=== PATIENT | male | born 1950 | race Caucasian/White ===

== ENCOUNTER 2018-01-24 03:09 | Emergency (ER) | payer OTHER ==
[~2018-01-24] VITALS: Ht 177.8 cm; Wt 115.7 kg
[2018-01-24] MEDS ORDERED: METO50ER PO (03:32)
[2018-01-24] MEDS ORDERED: ASPI81CH PO (03:32)
[2018-01-24] MEDS ORDERED: PRAV20 PO (03:32)
[2018-01-24] MEDS ORDERED: GLIM2 PO (03:33)
[2018-01-24] MEDS ORDERED: FURO40 PO (03:33)
[2018-01-24] MEDS ORDERED: METF500C PO (03:33)
[2018-01-24] MEDS ORDERED: LISI5 PO ×2 (03:34→03:45)
[2018-01-24] MEDS ORDERED: NAPR500 PO (03:45)
[2018-01-24 03:52] LABS: BASOPHILS ABSOLUTE AUTO 0.04 K/mm3 (0.00-0.23); BASOPHILS PERCENT AUTO 1 % (0-2); EOSINOPHILS ABSOLUTE AUTO 0.19 K/mm3 (0.00-0.68); EOSINOPHILS PERCENT AUTO 3 % (0-6); Hematocrit 42.6 % (37.0-53.0); Hemoglobin 13.7 g/dL (13.5-17.5); IMMATURE GRAN ABSOLUTE AUTO 0.07 K/mm3 (0.00-0.10); IMMATURE GRAN PERCENT AUTO 1 % (0-1); LYMPHOCYTES ABSOLUTE AUTO 1.65 K/mm3 (0.84-5.20); LYMPHOCYTES PERCENT AUTO 22 % (21-46); MONOCYTES ABSOLUTE AUTO 0.74 K/mm3 (0.16-1.47); MONOCYTES PERCENT AUTO 10 % (4-13); Mean Corpuscular HGB Conc 32.2 g/dL (31.5-36.5); Mean Corpuscular Volume 87 fL (80-100); Mean Platelet Volume 10.1 fL (9.1-12.4); NEUTROPHILS ABSOLUTE AUTO 4.91 K/mm3 (1.96-9.15); NEUTROPHILS PERCENT AUTO 65 % (41-73); Platelet Count 263 K/mm3 (150-400); RDW Coefficient Variation 13.4 % (11.7-14.2); RDW Standard Deviation 42.5 fL (35.1-46.3); Red Blood Cell Count 4.89 M/mm3 (4.30-5.90)
[2018-01-24 04:07] LABS: Alanine Aminotransfer (ALT/SGP 28 U/L (12-78); Albumin, Blood 3.4 g/dL (3.4-5.0); Alk Phos 85 U/L (50-136); Anion Gap 9 mmol/L (6-16); Aspartate Aminotrans (AST/SGOT 18 U/L (12-37); Bilirubin, Total 0.5 mg/dL (0.1-1.0); Blood Urea Nitrogen 24 mg/dL (8-24); Bun/Creatinine Ratio 29.3 (12.0-20.0); CO2, Blood 26 mmol/L (21-32); Calcium, Blood 8.5 mg/dL (8.5-10.1); Chloride, Blood 103 mmol/L (98-108); Creatinine, Blood 0.82 mg/dL (0.60-1.20); Globulin, Blood 3.5 g/dL (2.2-4.0); Glomerular Filtration Rate >60 (60-); Glucose, Blood 342 mg/dL (70-99); Magnesium, Blood 1.8 mg/dL (1.6-2.4); Potassium, Blood 3.9 mmol/L (3.5-5.5); Sodium, Blood 138 mmol/L (136-145); Total Protein, Blood 6.9 g/dL (6.4-8.2); Troponin I <0.015 ng/mL (0.000-0.040)
[2018-01-24] MEDS ORDERED: Cipro500 MG PO (05:04)
[2018-01-24] MEDS ORDERED: Flagyl500 MG PO (05:04)
== END 2018-01-24 05:16 | disposition home or self-care (01) ==
LOC: ER 03:09
PROVIDERS: Emergency Medicine
DX: K57.31 Diverticulosis of large intestine without perforation or abscess with bleeding (principal); K57.33 Diverticulitis of large intestine without perforation or abscess with bleeding; Z88.5 Allergy status to narcotic agent; Z79.899 Other long term (current) drug therapy; Z79.82 Long term (current) use of aspirin; Z79.84 Long term (current) use of oral hypoglycemic drugs
CPT/HCPCS: 36415; 74176; 80053; 82272; 83690; 83735; 84484; 85025; 86850; 86900; 86901; 99284-25

== ENCOUNTER → 2018-12-09 | Outpatient (CLI) | payer OTHER ==
[~2018-12-09] MED LIST: AMLO5; ASPI81CH PO; BUPR150ERA; Cipro500 MG PO; FURO40 PO; Flagyl500 MG PO; GLIM2 PO; Indomethacin25 MG; LEVSOD100; LISI5 PO; METF500C PO; METO100ER PO; METO50ER PO; NAPR500 PO; NOVOLIN 70100 UNIT/1; PRAV20 PO; TAMS.4ER; ZESTRIL40 MG; Zoloft100 MG
== END | disposition home or self-care (01) ==
LOC: LAB SHORT 10:00 → LAB EV 10:00
DX: L72.3 Sebaceous cyst (principal)
CPT/HCPCS: 87070; 87077; 87147; 87186; 87205

== ENCOUNTER 2019-02-03 13:28 | Emergency (ER) | payer OTHER ==
[~2019-02-03] VITALS: Ht 177.8 cm; Wt 115.7 kg
[~2019-02-03 13:28] MED LIST changes: -TAMS.4ER
[2019-02-03] MEDS ORDERED: TAMS.4ER (14:14)
[2019-02-03 15:45] LABS: BASOPHILS ABSOLUTE AUTO 0.02 K/mm3 (0.00-0.23); BASOPHILS PERCENT AUTO 0 % (0-2); EOSINOPHILS ABSOLUTE AUTO 0.04 K/mm3 (0.00-0.68); EOSINOPHILS PERCENT AUTO 0 % (0-6); Hematocrit 45.7 % (37.0-53.0); Hemoglobin 14.4 g/dL (13.5-17.5); IMMATURE GRAN ABSOLUTE AUTO 0.04 K/mm3 (0.00-0.10); IMMATURE GRAN PERCENT AUTO 0 % (0-1); LYMPHOCYTES ABSOLUTE AUTO 0.64 K/mm3 (0.84-5.20); LYMPHOCYTES PERCENT AUTO 7 % (21-46); MONOCYTES ABSOLUTE AUTO 0.68 K/mm3 (0.16-1.47); MONOCYTES PERCENT AUTO 8 % (4-13); Mean Corpuscular HGB Conc 31.5 g/dL (31.5-36.5); Mean Corpuscular Volume 86 fL (80-100); NEUTROPHILS ABSOLUTE AUTO 7.48 K/mm3 (1.96-9.15); NEUTROPHILS PERCENT AUTO 84 % (41-73); Platelet Count 216 K/mm3 (150-400); RDW Coefficient Variation 14.4 % (11.7-14.2); RDW Standard Deviation 45.1 fL (35.1-46.3); Red Blood Cell Count 5.33 M/mm3 (4.30-5.90)
[2019-02-03 16:16] LABS: Troponin I <0.015 ng/mL (0.000-0.040)
[2019-02-03 16:18] LABS: Alanine Aminotransfer (ALT/SGP 26 U/L (12-78); Albumin, Blood 3.6 g/dL (3.4-5.0); Alk Phos 53 U/L (50-136); Anion Gap 3 mmol/L (6-16); Aspartate Aminotrans (AST/SGOT 15 U/L (12-37); Bilirubin, Total 0.9 mg/dL (0.1-1.0); Blood Urea Nitrogen 30 mg/dL (8-24); Bun/Creatinine Ratio 14.8 (12.0-20.0); CO2, Blood 30 mmol/L (21-32); Calcium, Blood 9.1 mg/dL (8.5-10.1); Chloride, Blood 100 mmol/L (98-108); Creatinine, Blood 2.03 mg/dL (0.60-1.20); Globulin, Blood 3.5 g/dL (2.2-4.0); Glomerular Filtration Rate 35 (60-); Glucose, Blood 241 mg/dL (70-99); Potassium, Blood 4.1 mmol/L (3.5-5.5); Sodium, Blood 133 mmol/L (136-145); Total Protein, Blood 7.1 g/dL (6.4-8.2)
== END 2019-02-03 19:15 | disposition short-term general hospital (02) ==
LOC: ER 13:28
PROVIDERS: Emergency Medicine
DX: N13.2 Hydronephrosis with renal and ureteral calculous obstruction (principal); N17.9 Acute kidney failure, unspecified; Z88.5 Allergy status to narcotic agent; Z79.899 Other long term (current) drug therapy; Z79.4 Long term (current) use of insulin
CPT/HCPCS: 36415; 74176; 80053; 84484; 85025; 96361; 96374; 99285-25; J2405; J7120

== ENCOUNTER → 2019-05-03 | Outpatient (CLI) | payer OTHER ==
[~2019-05-03] MED LIST changes: +ACET500 PO; -AMLO5; +AMLO5 PO; +BUPR150ER PO; -BUPR150ERA; +INSULANPEN SC; -LEVSOD100; +LEVSOD100 PO; +ONDA4 PO; +POTA10T PO; +TAMS.4ER; +Voltaren100 GM TOP; +ZESTRIL40 M1 PO; -ZESTRIL40 MG; -Zoloft100 MG; +Zoloft100 MG PO
== END | disposition home or self-care (01) ==
LOC: LAB SHORT 15:10 → LAB EV 15:10
DX: L08.9 Local infection of the skin and subcutaneous tissue, unspecified (principal)
CPT/HCPCS: 87070; 87205

== ENCOUNTER 2019-06-15 20:59 | Emergency (ER) | payer OTHER ==
[~2019-06-15] VITALS: Ht 177.8 cm; Wt 117.0 kg
[~2019-06-15 20:59] MED LIST changes: -ACET500 PO; -INSULANPEN SC; -ONDA4 PO; -POTA10T PO; -Voltaren100 GM TOP
[2019-06-15 22:02] LABS: BASOPHILS ABSOLUTE AUTO 0.06 K/mm3 (0.00-0.23); BASOPHILS PERCENT AUTO 0 % (0-2); EOSINOPHILS ABSOLUTE AUTO 0.03 K/mm3 (0.00-0.68); EOSINOPHILS PERCENT AUTO 0 % (0-6); Hematocrit 48.5 % (37.0-53.0); Hemoglobin 15.5 g/dL (13.5-17.5); IMMATURE GRAN ABSOLUTE AUTO 0.15 K/mm3 (0.00-0.10); IMMATURE GRAN PERCENT AUTO 1 % (0-1); LYMPHOCYTES ABSOLUTE AUTO 0.87 K/mm3 (0.84-5.20); LYMPHOCYTES PERCENT AUTO 6 % (21-46); MONOCYTES ABSOLUTE AUTO 1.07 K/mm3 (0.16-1.47); MONOCYTES PERCENT AUTO 7 % (4-13); Mean Corpuscular HGB 27.6 pg (26.0-34.0); Mean Corpuscular Volume 86 fL (80-100); Mean Platelet Volume 10.3 fL (9.1-12.4); NEUTROPHILS ABSOLUTE AUTO 13.54 K/mm3 (1.96-9.15); NEUTROPHILS PERCENT AUTO 86 % (41-73); Platelet Count 234 K/mm3 (150-400); RDW Coefficient Variation 14.1 % (11.7-14.2); RDW Standard Deviation 44.8 fL (35.1-46.3); Red Blood Cell Count 5.62 M/mm3 (4.30-5.90); White Blood Cell Count 15.72 K/mm3 (4.00-11.30)
[2019-06-15 22:25] LABS: Alanine Aminotransfer (ALT/SGP 34 U/L (12-78); Albumin, Blood 3.7 g/dL (3.4-5.0); Alk Phos 53 U/L (50-136); Anion Gap 9 mmol/L (6-16); Aspartate Aminotrans (AST/SGOT 13 U/L (12-37); Bilirubin, Total 1.3 mg/dL (0.1-1.0); Blood Urea Nitrogen 16 mg/dL (8-24); Bun/Creatinine Ratio 17.1 (12.0-20.0); CO2, Blood 25 mmol/L (21-32); Calcium, Blood 9.1 mg/dL (8.5-10.1); Chloride, Blood 102 mmol/L (98-108); Creatinine, Blood 0.94 mg/dL (0.60-1.20); Globulin, Blood 3.7 g/dL (2.2-4.0); Glomerular Filtration Rate >60 (60-); Glucose, Blood 214 mg/dL (70-99); Potassium, Blood 3.7 mmol/L (3.5-5.5); Sodium, Blood 136 mmol/L (136-145); Total Protein, Blood 7.4 g/dL (6.4-8.2); Troponin I <0.015 ng/mL (0.000-0.040)
[2019-06-15] MEDS ORDERED: POTA10T PO (22:34)
[2019-06-15] MEDS ORDERED: INSULANPEN SC (22:34)
[2019-06-15] MEDS ORDERED: ONDA4 PO (22:34)
[2019-06-15] MEDS ORDERED: ACET500 PO (22:34)
[2019-06-15] MEDS ORDERED: Voltaren100 GM TOP (22:35)
[2019-06-16 00:28] LABS: Adenovirus Not Detected (NOT DETECT); Bordetella pertussis Not Detected (NOT DETECT); Chlamydophila pneumoniae Not Detected (NOT DETECT); Coronavirus 229E Not Detected (NOT DETECT); Coronavirus HKU1 Not Detected (NOT DETECT); Coronavirus NL63 Not Detected (NOT DETECT); Coronavirus OC43 Not Detected (NOT DETECT); Human Metapneumovirus Not Detected (NOT DETECT); Human Rhinovirus/Enterovirus Not Detected (NOT DETECT); Influenza A Not Detected (NOT DETECT); Influenza A/2009-H1 Not Detected (NOT DETECT); Influenza A/H1 Not Detected (NOT DETECT); Influenza A/H3 Not Detected (NOT DETECT); Influenza B Not Detected (NOT DETECT); Mycoplasma pneumoniae Not Detected (NOT DETECT); Parainfluenza Virus 1 Not Detected (NOT DETECT); Parainfluenza Virus 2 Not Detected (NOT DETECT); Parainfluenza Virus 3 Not Detected (NOT DETECT); Parainfluenza Virus 4 Not Detected (NOT DETECT); Respiratory Syncytial Virus Not Detected (NOT DETECT)
== END 2019-06-16 01:11 | disposition home or self-care (01) ==
LOC: ER 20:59
PROVIDERS: Emergency Medicine; Physician Assistant
DX: J06.9 Acute upper respiratory infection, unspecified (principal); Z88.5 Allergy status to narcotic agent; Z79.899 Other long term (current) drug therapy; Z79.84 Long term (current) use of oral hypoglycemic drugs
CPT/HCPCS: 0099U; 36415; 71046; 80053; 84484; 85025; 93005; 93010; 94640; 99284-25

== ENCOUNTER 2021-03-28 11:07 | Day surgery (SDC) | payer OTHER ==
[~2021-03-28] VITALS: Ht 177.8 cm; Wt 115.0 kg
[~2021-03-28 11:07] MED LIST changes: +ACET500 PO; +INSULANPEN SC; +ONDA4 PO; +POTA10T PO; +Voltaren100 GM TOP
[2021-03-28] MEDS ORDERED: NOVOLIN 70100 UNIT/4 SC (11:53)
== END 2021-03-28 13:29 | disposition home or self-care (01) ==
LOC: ORSCSDS 11:07
PROVIDERS: Orthopaedic Surgery
PROC: 01N54ZZ Release Median Nerve, Percutaneous Endoscopic Approach (ICD-10-PCS; principal; 2021-03-28 12:30)
DX: G56.02 Carpal tunnel syndrome, left upper limb (principal); E11.9 Type 2 diabetes mellitus without complications; I10 Essential (primary) hypertension; E66.9 Obesity, unspecified; Z68.36 Body mass index [BMI] 36.0-36.9, adult; F41.8 Other specified anxiety disorders; E78.5 Hyperlipidemia, unspecified; Z79.4 Long term (current) use of insulin; Z79.899 Other long term (current) drug therapy
CPT/HCPCS: 82947; J2250; J2704; J3010

== ENCOUNTER 2022-05-02 16:13 | Inpatient (IN) | payer OTHER ==
[~2022-05-02] VITALS: Ht 177.8 cm; Wt 113.5 kg
[~2022-05-02 16:13] MED LIST changes: -BACTRIM DS TAB1 EAC6 PO; -METO25ER PO
[2022-05-02 17:29] LABS: Influenza A, PCR NEGATIVE (NEGATIVE); Influenza B, PCR NEGATIVE (NEGATIVE); Resp Syncytial Virus, PCR NEGATIVE (NEGATIVE); SARS-Cov-2 (COVID-19) PCR, MMC NEGATIVE (NEGATIVE)
[2022-05-02 18:05] LABS: Source, Urine Clean Catch
[2022-05-02 18:16] LABS: Appearance, Urine Clear (Clear); Blood, Urine 4+ (Neg); Color, Urine Amber (P-Yellow); Glucose Qualitative, Urine Neg (Neg); Ketones, Urine Neg (Neg); Leukocyte Esterase, Urine 2+ (Neg); Nitrite, Urine Neg (Neg); Protein, Urine 2+ (Neg); Specific Gravity, Urine 1.025 (1.003-1.022); Urobilinogen, Urine NORM (Normal)
[2022-05-02 18:22] LABS: Bilirubin, Urine 1+ (Neg)
[2022-05-02 18:23] LABS: Bacteria Mod /hpf; Squamous Epithelial Cells Rare /hpf (Few)
[2022-05-02 18:24] LABS: Amorphous Light (0-Heavy)
[2022-05-03 01:03] LABS: BASOPHILS ABSOLUTE AUTO 0.04 K/mm3 (0.00-0.23); BASOPHILS PERCENT AUTO 0 % (0-2); EOSINOPHILS ABSOLUTE AUTO 0.04 K/mm3 (0.00-0.68); EOSINOPHILS PERCENT AUTO 0 % (0-6); Hematocrit 42.3 % (37.0-53.0); Hemoglobin 13.3 g/dL (13.5-17.5); IMMATURE GRAN ABSOLUTE AUTO 0.18 K/mm3 (0.00-0.10); IMMATURE GRAN PERCENT AUTO 1 % (0-1); LYMPHOCYTES ABSOLUTE AUTO 0.58 K/mm3 (0.84-5.20); LYMPHOCYTES PERCENT AUTO 3 % (21-46); MONOCYTES ABSOLUTE AUTO 1.54 K/mm3 (0.16-1.47); MONOCYTES PERCENT AUTO 9 % (4-13); Mean Corpuscular HGB 27.5 pg (26.0-34.0); Mean Corpuscular HGB Conc 31.4 g/dL (31.5-36.5); Mean Corpuscular Volume 87 fL (80-100); Mean Platelet Volume 9.7 fL (9.1-12.4); NEUTROPHILS ABSOLUTE AUTO 15.27 K/mm3 (1.96-9.15); NEUTROPHILS PERCENT AUTO 87 % (41-73); Platelet Count 202 K/mm3 (150-400); RDW Coefficient Variation 15.1 % (11.7-14.2); RDW Standard Deviation 48.7 fL (35.1-46.3); Red Blood Cell Count 4.84 M/mm3 (4.30-5.90); White Blood Cell Count 17.65 K/mm3 (4.00-11.30)
[2022-05-03 01:22] LABS: Albumin, Blood 2.8 g/dL (3.4-5.0); Albumin/Globulin Ratio 0.7 (0.8-1.8); Bilirubin, Total 1.1 mg/dL (0.1-1.0); Calcium, Blood 8.4 mg/dL (8.5-10.1); Creatinine, Blood 2.29 mg/dL (0.60-1.20); Globulin, Blood 3.8 g/dL (2.2-4.0); Potassium, Blood 4.4 mmol/L (3.5-5.5); Total Protein, Blood 6.6 g/dL (6.4-8.2)
--- NOTE | 2022-05-03 07:20 | NUR ---
SHIFT SUMMARY PATIENT ALERT AND ORIENTED X3. MEDICATED PER EMAR FOR PAIN. DENIED SHORTNESS OF BREATH AND NAUSEA. PATIENT HAS BEEN INCREASING IN WEAKNESS SINCE BEING ADMITTED. CALL LIGHT WITHIN REACH REPORT GIVEN TO ONCOMING RN.
--- NOTE | 2022-05-04 05:05 | NUR ---
Patient resting at this time, no complaints of pain or discomfort.
[2022-05-04 05:44] LABS: BASOPHILS ABSOLUTE AUTO 0.03 K/mm3 (0.00-0.23); BASOPHILS PERCENT AUTO 0 % (0-2); EOSINOPHILS PERCENT AUTO 1 % (0-6); Hematocrit 38.5 % (37.0-53.0); Hemoglobin 12.1 g/dL (13.5-17.5); IMMATURE GRAN ABSOLUTE AUTO 0.28 K/mm3 (0.00-0.10); IMMATURE GRAN PERCENT AUTO 2 % (0-1); LYMPHOCYTES ABSOLUTE AUTO 0.48 K/mm3 (0.84-5.20); LYMPHOCYTES PERCENT AUTO 4 % (21-46); MONOCYTES ABSOLUTE AUTO 1.26 K/mm3 (0.16-1.47); MONOCYTES PERCENT AUTO 9 % (4-13); Mean Corpuscular HGB 27.6 pg (26.0-34.0); Mean Corpuscular HGB Conc 31.4 g/dL (31.5-36.5); Mean Corpuscular Volume 88 fL (80-100); Mean Platelet Volume 10.2 fL (9.1-12.4); NEUTROPHILS PERCENT AUTO 84 % (41-73); Platelet Count 187 K/mm3 (150-400); RDW Coefficient Variation 15.4 % (11.7-14.2); RDW Standard Deviation 49.7 fL (35.1-46.3); Red Blood Cell Count 4.39 M/mm3 (4.30-5.90); White Blood Cell Count 13.75 K/mm3 (4.00-11.30)
[2022-05-04 06:18] LABS: Albumin, Blood 2.4 g/dL (3.4-5.0); Albumin/Globulin Ratio 0.6 (0.8-1.8); Bilirubin, Total 0.8 mg/dL (0.1-1.0); Bun/Creatinine Ratio 16.2 (12.0-20.0); Calcium, Blood 8.7 mg/dL (8.5-10.1); Creatinine, Blood 1.97 mg/dL (0.60-1.20); Globulin, Blood 3.9 g/dL (2.2-4.0); Phosphorus, Blood 2.1 mg/dL (2.5-4.9); Total Protein, Blood 6.3 g/dL (6.4-8.2)
--- NOTE | 2022-05-04 17:22 | NUR ---
DAYSHIFT SUMMARY Patient admittted for uretral stones, urine output is mcneil/milky/sediment noted. Patient reported passing a stone, small redish stone found in urinary, per MD sent stone to lab for anaylsis. Dr. Cedeño ordered CT of bladder/kidneys. CT completed this afternoon, results pending. Patient c/o mild flank pain, resting comfortably in bed t/o day. CBGS high this shift, patient refused SSI this morning. Vitals stable, will continue to monitor.
[2022-05-05 00:15] LABS: Hematocrit 39.2 % (37.0-53.0); Hemoglobin 12.6 g/dL (13.5-17.5)
[2022-05-05 00:31] LABS: Albumin, Blood 2.4 g/dL (3.4-5.0); Anion Gap 7 mmol/L (6-16); Blood Urea Nitrogen 26 mg/dL (8-24); Bun/Creatinine Ratio 17.9 (12.0-20.0); CO2, Blood 25 mmol/L (21-32); Calcium, Blood 9.2 mg/dL (8.5-10.1); Chloride, Blood 106 mmol/L (98-108); Creatinine, Blood 1.45 mg/dL (0.60-1.20); Glomerular Filtration Rate 52 (60-); Glucose, Blood 190 mg/dL (70-99); Phosphorus, Blood 2.4 mg/dL (2.5-4.9); Potassium, Blood 3.9 mmol/L (3.5-5.5); Sodium, Blood 138 mmol/L (136-145); Vancomycin, Trough 7.6 ug/mL (5.0-10.0)
--- NOTE | 2022-05-05 03:31 | NUR ---
Patient resting in room, cooperative with care.
[2022-05-05] MEDS ORDERED: METO25ER PO (12:32)
[2022-05-05] MEDS ORDERED: BACTRIM DS TAB1 EAC6 PO (12:39)
--- NOTE | 2022-05-05 16:58 | NUR ---
MD assessed patient at bedside, CT showed pt passed stone. Pt denies flank pain/discomfort. Voiding fine, no dysuria, urine is WNL. Plan is to discharge home with PO ABX. RT completed home ox2 eval, pt needs oxygen for home. [facility] After 1800 Vancomycin patient will DC home.
--- NOTE | 2022-05-05 18:01 | NUR ---
MD assessed patient at bedside, CT showed pt passed stone. Pt denies flank pain/discomfort. Voiding fine, no dysuria, urine is WNL. Plan is to discharge home with PO ABX. RT completed home ox2 eval, pt needs oxygen for home. [facility] After 1800 Vancomycin patient will DC home.
== END 2022-05-05 19:17 | disposition home or self-care (01) | DRG 872 ==
LOC: ER 16:13 → MEDS 16:14
PROVIDERS: Hospitalist; Internal Medicine Nephrology; Physician Assistant; ADMIT Internal Medicine
DX: A41.01 Sepsis due to Methicillin susceptible Staphylococcus aureus (principal); N13.6 Pyonephrosis; E87.20 Acidosis, unspecified; N17.9 Acute kidney failure, unspecified; B95.61 Methicillin susceptible Staphylococcus aureus infection as the cause of diseases classified elsewhere; E11.22 Type 2 diabetes mellitus with diabetic chronic kidney disease; Z88.5 Allergy status to narcotic agent; I12.9 Hypertensive chronic kidney disease with stage 1 through stage 4 chronic kidney disease, or unspecified chronic kidney disease; E78.5 Hyperlipidemia, unspecified; E03.9 Hypothyroidism, unspecified; N18.9 Chronic kidney disease, unspecified; Z79.899 Other long term (current) drug therapy; Z79.4 Long term (current) use of insulin; Z98.890 Other specified postprocedural states; N40.0 Benign prostatic hyperplasia without lower urinary tract symptoms; E88.09 Other disorders of plasma-protein metabolism, not elsewhere classified; E83.39 Other disorders of phosphorus metabolism; D64.9 Anemia, unspecified; Z20.822 Contact with and (suspected) exposure to COVID-19; Z28.21 Immunization not carried out because of patient refusal
CPT/HCPCS: 0241U; 36415; 74176; 74177; 80053; 80069; 80202; 81001; 82947; 83605; 83690; 83735; 84100; 85014; 85018; 85025; 87040; 87077; 87086; 87147; 87186; 94761; 96361; 96375; 96376; A9270; G0378; J0696; J1790; J1815; J2405; J2543; J3010; J3370; J7030; J7050; J7060; Q9967

== ENCOUNTER → 2022-05-02 | Outpatient (CLI) | payer OTHER ==
[~2022-05-02] MED LIST changes: +BACTRIM DS TAB1 EAC6 PO; -BUPR150ER PO; +BUPROPION XL150 M1 PO; +METO100 PO; -METO100ER PO; +METO25ER PO; +NOVOLIN 70100 UNIT/4 SC; +SERT100 PO; +TAMS.4ER PO; -Zoloft100 MG PO
[2022-05-02 15:32] LABS: BASOPHILS ABSOLUTE AUTO 0.06 K/mm3 (0.00-0.23); BASOPHILS PERCENT AUTO 0 % (0-2); EOSINOPHILS ABSOLUTE AUTO 0.07 K/mm3 (0.00-0.68); EOSINOPHILS PERCENT AUTO 0 % (0-6); Hematocrit 48.8 % (37.0-53.0); Hemoglobin 15.3 g/dL (13.5-17.5); IMMATURE GRAN ABSOLUTE AUTO 0.21 K/mm3 (0.00-0.10); IMMATURE GRAN PERCENT AUTO 1 % (0-1); LYMPHOCYTES ABSOLUTE AUTO 0.63 K/mm3 (0.84-5.20); LYMPHOCYTES PERCENT AUTO 3 % (21-46); MONOCYTES ABSOLUTE AUTO 1.64 K/mm3 (0.16-1.47); MONOCYTES PERCENT AUTO 8 % (4-13); Mean Corpuscular HGB 27.5 pg (26.0-34.0); Mean Corpuscular HGB Conc 31.4 g/dL (31.5-36.5); Mean Corpuscular Volume 88 fL (80-100); Mean Platelet Volume 9.6 fL (9.1-12.4); NEUTROPHILS ABSOLUTE AUTO 18.05 K/mm3 (1.96-9.15); NEUTROPHILS PERCENT AUTO 88 % (41-73); Platelet Count 258 K/mm3 (150-400); RDW Coefficient Variation 15.4 % (11.7-14.2); RDW Standard Deviation 49.1 fL (35.1-46.3); Red Blood Cell Count 5.57 M/mm3 (4.30-5.90); White Blood Cell Count 20.66 K/mm3 (4.00-11.30)
[2022-05-02 15:39] LABS: Bun/Creatinine Ratio 11.9 (12.0-20.0); Calcium, Blood 9.3 mg/dL (8.5-10.1); Creatinine, Blood 2.19 mg/dL (0.60-1.20); Potassium, Blood 4.5 mmol/L (3.5-5.5)
== END | disposition home or self-care (01) ==
LOC: LAB SHORT 15:27 → LAB 15:27
PROVIDERS: Physician Assistant Surgical
DX: R10.32 Left lower quadrant pain (principal)
CPT/HCPCS: 80048; 85025

== ENCOUNTER → 2022-05-10 | Outpatient (CLI) | payer OTHER ==
[~2022-05-10] MED LIST changes: +BACTRIM DS TAB1 EAC6 PO; +METO25ER PO
[2022-05-10 12:33] LABS: BASOPHILS ABSOLUTE AUTO 0.05 K/mm3 (0.00-0.23); BASOPHILS PERCENT AUTO 1 % (0-2); EOSINOPHILS ABSOLUTE AUTO 0.18 K/mm3 (0.00-0.68); EOSINOPHILS PERCENT AUTO 2 % (0-6); Hematocrit 47.1 % (37.0-53.0); Hemoglobin 14.5 g/dL (13.5-17.5); IMMATURE GRAN ABSOLUTE AUTO 0.24 K/mm3 (0.00-0.10); IMMATURE GRAN PERCENT AUTO 3 % (0-1); LYMPHOCYTES ABSOLUTE AUTO 1.07 K/mm3 (0.84-5.20); LYMPHOCYTES PERCENT AUTO 12 % (21-46); MONOCYTES ABSOLUTE AUTO 0.66 K/mm3 (0.16-1.47); MONOCYTES PERCENT AUTO 7 % (4-13); Mean Corpuscular HGB 27.5 pg (26.0-34.0); Mean Corpuscular HGB Conc 30.8 g/dL (31.5-36.5); Mean Corpuscular Volume 89 fL (80-100); Mean Platelet Volume 9.5 fL (9.1-12.4); NEUTROPHILS ABSOLUTE AUTO 6.86 K/mm3 (1.96-9.15); NEUTROPHILS PERCENT AUTO 76 % (41-73); Platelet Count 347 K/mm3 (150-400); RDW Coefficient Variation 14.8 % (11.7-14.2); RDW Standard Deviation 48.5 fL (35.1-46.3); Red Blood Cell Count 5.27 M/mm3 (4.30-5.90); White Blood Cell Count 9.06 K/mm3 (4.00-11.30)
[2022-05-10 13:13] LABS: Albumin, Blood 3.1 g/dL (3.4-5.0); Albumin/Globulin Ratio 0.8 (0.8-1.8); Bilirubin, Total 0.6 mg/dL (0.1-1.0); Bun/Creatinine Ratio 13.3 (12.0-20.0); Creatinine, Blood 1.35 mg/dL (0.60-1.20); Total Protein, Blood 7.1 g/dL (6.4-8.2)
== END | disposition home or self-care (01) ==
LOC: LAB SHORT 12:22 → LAB 12:22
PROVIDERS: Physician Assistant
DX: N13.2 Hydronephrosis with renal and ureteral calculous obstruction (principal)
CPT/HCPCS: 80053; 85025

== ENCOUNTER 2023-03-06 12:14 | Observation (INO) | payer OTHER ==
[~2023-03-06] VITALS: Ht 177.8 cm; Wt 120.7 kg
[~2023-03-06 12:14] MED LIST changes: +ACET325 PO; -ACET500 PO
[2023-03-06 12:58] LABS: BASOPHILS ABSOLUTE AUTO 0.05 K/mm3 (0.00-0.23); BASOPHILS PERCENT AUTO 1 % (0-2); EOSINOPHILS ABSOLUTE AUTO 0.28 K/mm3 (0.00-0.68); EOSINOPHILS PERCENT AUTO 3 % (0-6); Hematocrit 47.6 % (37.0-53.0); Hemoglobin 14.8 g/dL (13.5-17.5); IMMATURE GRAN ABSOLUTE AUTO 0.04 K/mm3 (0.00-0.10); IMMATURE GRAN PERCENT AUTO 1 % (0-1); LYMPHOCYTES ABSOLUTE AUTO 1.19 K/mm3 (0.84-5.20); LYMPHOCYTES PERCENT AUTO 14 % (21-46); MONOCYTES ABSOLUTE AUTO 0.65 K/mm3 (0.16-1.47); MONOCYTES PERCENT AUTO 8 % (4-13); Mean Corpuscular HGB 27.4 pg (26.0-34.0); Mean Corpuscular HGB Conc 31.1 g/dL (31.5-36.5); Mean Corpuscular Volume 88 fL (80-100); Mean Platelet Volume 10.4 fL (9.1-12.4); NEUTROPHILS PERCENT AUTO 75 % (41-73); Platelet Count 234 K/mm3 (150-400); RDW Coefficient Variation 15.2 % (11.7-14.2); RDW Standard Deviation 49.1 fL (35.1-46.3); Red Blood Cell Count 5.41 M/mm3 (4.30-5.90); White Blood Cell Count 8.71 K/mm3 (4.00-11.30)
[2023-03-06 13:24] LABS: Albumin, Blood 3.6 g/dL (3.4-5.0); Albumin/Globulin Ratio 1.1 (0.8-1.8); Bilirubin, Total 0.8 mg/dL (0.1-1.0); Bun/Creatinine Ratio 22.8 (12.0-20.0); Calcium, Blood 8.7 mg/dL (8.5-10.1); Creatinine, Blood 1.01 mg/dL (0.60-1.20); Globulin, Blood 3.3 g/dL (2.2-4.0); Potassium, Blood 4.6 mmol/L (3.5-5.5); Total Protein, Blood 6.9 g/dL (6.4-8.2)
[2023-03-06 15:08] VITALS: BP 170/77
[2023-03-06] MEDS ORDERED: LISI20 PO (15:34)
[2023-03-06] MEDS ORDERED: LATA.005SO BOTHEYES (15:36)
[2023-03-06] MEDS ORDERED: TIMDOROPSO BOTHEYES (15:37)
[2023-03-06] MEDS ORDERED: POTCIT10 PO (15:39)
[2023-03-06] MEDS ORDERED: METF500C PO (15:40)
[2023-03-06 17:19] VITALS: BP 174/101
[2023-03-06 18:06] VITALS: BP 155/90
--- NOTE | 2023-03-06 18:55 | NUR ---
SHIFT SUMMARY PT A&OX4, VSS/2LNC BASELINE, VOIDING WELL, NO BM SINCE ARRIVAL TO UNIT, AMB SBA TO BRP, REPOSITIONS SELF, PROTONIX DRIP INFUSING, DR LINDSAY CONSULT: WILL SEE PATIENT TONIGHT. WILL REPORT TO ONCOMING NOC RN.
[2023-03-06 19:21] VITALS: BP 180/88
[2023-03-06 20:02] VITALS: BP 167/91
[2023-03-06 20:50] VITALS: BP 160/85
[2023-03-07 03:56] VITALS: BP 152/83
[2023-03-07 04:50] LABS: BASOPHILS ABSOLUTE AUTO 0.04 K/mm3 (0.00-0.23); BASOPHILS PERCENT AUTO 0 % (0-2); EOSINOPHILS ABSOLUTE AUTO 0.38 K/mm3 (0.00-0.68); EOSINOPHILS PERCENT AUTO 4 % (0-6); IMMATURE GRAN ABSOLUTE AUTO 0.04 K/mm3 (0.00-0.10); IMMATURE GRAN PERCENT AUTO 0 % (0-1); LYMPHOCYTES PERCENT AUTO 14 % (21-46); MONOCYTES ABSOLUTE AUTO 0.91 K/mm3 (0.16-1.47); MONOCYTES PERCENT AUTO 9 % (4-13); Mean Corpuscular HGB 27.4 pg (26.0-34.0); Mean Corpuscular HGB Conc 30.6 g/dL (31.5-36.5); Mean Corpuscular Volume 89 fL (80-100); Mean Platelet Volume 10.6 fL (9.1-12.4); NEUTROPHILS ABSOLUTE AUTO 7.18 K/mm3 (1.96-9.15); NEUTROPHILS PERCENT AUTO 72 % (41-73); Platelet Count 239 K/mm3 (150-400); RDW Coefficient Variation 15.4 % (11.7-14.2); RDW Standard Deviation 50.8 fL (35.1-46.3); Red Blood Cell Count 5.48 M/mm3 (4.30-5.90); White Blood Cell Count 9.95 K/mm3 (4.00-11.30)
[2023-03-07 05:06] LABS: Prothrombin Time Results 10.5 Sec (9.7-11.5)
[2023-03-07 05:15] LABS: Magnesium, Blood 2.2 mg/dL (1.6-2.4)
[2023-03-07 05:16] LABS: Albumin, Blood 3.6 g/dL (3.4-5.0); Anion Gap 4 mmol/L (6-16); Blood Urea Nitrogen 20 mg/dL (8-24); Bun/Creatinine Ratio 21.3 (12.0-20.0); CO2, Blood 29 mmol/L (21-32); Calcium, Blood 8.9 mg/dL (8.5-10.1); Chloride, Blood 108 mmol/L (98-108); Creatinine, Blood 0.94 mg/dL (0.60-1.20); Glomerular Filtration Rate 87 (60-); Glucose, Blood 102 mg/dL (70-99); Phosphorus, Blood 3.1 mg/dL (2.5-4.9); Potassium, Blood 3.9 mmol/L (3.5-5.5); Sodium, Blood 141 mmol/L (136-145)
--- NOTE | 2023-03-07 05:16 | NUR ---
SHIFT SUMMARY NOC. PT A/OX4 THIS SHIFT. PT MEDICATED FOR HTN X1. PT INDEPENDENT IN THE ROOM, VOIDING APPROPRIATLY AND ON WATER ONLY RESTRICTION PER DR. LINDSAY. VERBAL ORDERS RECEIVED FOR ZOFRAN IV INCASE PT BECOMES NAUSEATED WHILE NPO. PT IS TO BE NPO AT NOON FOR PROCEDURE. PT ON O2 VIA NASAL CANULA, SATS REMAINING ABOVE 92%. PT PROTONIX DRIP IS INFUSING. PT DENIES ABDOMINAL DISCOMFORT. PT RESTED WITH EYES CLOSED AND CALL LIGHT IN REACH.
[2023-03-07 09:32] VITALS: BP 174/96
[2023-03-07 10:13] VITALS: BP 155/73
--- NOTE | 2023-03-07 10:18 | NUR ---
03/07/23 1018 Mony Bales SEE ANESTHESIA RECORD FROM DR. ESCALONA
[2023-03-07 11:01] VITALS: BP 144/82
--- NOTE | 2023-03-07 11:10 | NUR ---
S/P EGD, PT IS AWAKE, A&OX4, DENIES ANY PAIN, NAUSEA OR ANY DISCOMFORT, DR. DOWNING NOTIFIED PT IS BACK FROM PROCEDURE, CONT. TO MONITOR VS AND ANY CHANGES.
[2023-03-07 11:30] VITALS: BP 129/71
[2023-03-07 11:59] VITALS: BP 152/74
[2023-03-07] MEDS ORDERED: ONDA4 PO (11:59)
[2023-03-07] MEDS ORDERED: PANT40 PO (12:00)
--- NOTE | 2023-03-07 12:58 | NUR ---
PT REPORTS BREATHING "BETTER" SATS 97% ON 2L, RESPIRATIONS APPEAR LESS LABORED, PT WAS ABLE TO EAT AND REST, CONT. TO MONITOR FOR ANY CHANGES.
--- NOTE | 2023-03-07 15:01 | NUR ---
PT TOLERATED REGULAR DIET WELL, DENIES ANY PAIN OR ANY DISCOMFORT, PT VOIDED WITHOUT DIFFICULTY, PT DC'D HOME, DC INSTRUCTIONS GIVEN, VERBALIZED UNDERSTANDING, PT DC'D HOME W/ "FRIEND," ALL BELONGINGS GIVEN TO PT.
== END 2023-03-07 15:05 | disposition home or self-care (01) ==
LOC: ER 12:14 → SURS 12:15 → ER 12:15 → SURS 12:15
PROVIDERS: Physician Assistant; ADMIT Family Medicine
PROC: 0DB58ZX Excision of Esophagus, Via Natural or Artificial Opening Endoscopic, Diagnostic (ICD-10-PCS; principal; 2023-03-06)
PROC: 0DB68ZX Excision of Stomach, Via Natural or Artificial Opening Endoscopic, Diagnostic (ICD-10-PCS; principal; 2023-03-06)
DX: K31.89 Other diseases of stomach and duodenum (principal); E78.5 Hyperlipidemia, unspecified; E03.9 Hypothyroidism, unspecified; K21.9 Gastro-esophageal reflux disease without esophagitis; G47.33 Obstructive sleep apnea (adult) (pediatric); E11.22 Type 2 diabetes mellitus with diabetic chronic kidney disease; I12.9 Hypertensive chronic kidney disease with stage 1 through stage 4 chronic kidney disease, or unspecified chronic kidney disease; N18.9 Chronic kidney disease, unspecified; Z79.4 Long term (current) use of insulin; Z88.5 Allergy status to narcotic agent
CPT/HCPCS: 36415; 80053; 80069; 82947; 83735; 85025; 85610; 88305; 88312; 88342; 93005; 93010; 96374; 96375; 99285-25; A9270; C9113; J0360; J2405; J2704; J7120

== ENCOUNTER 2023-04-08 06:29 | Observation (INO) | payer OTHER ==
[~2023-04-08] VITALS: Ht 177.8 cm; Wt 119.4 kg
[~2023-04-08 06:29] MED LIST changes: +LATA.005SO BOTHEYES; +LISI20 PO; +PANT40 PO; +POTCIT10 PO; +TIMDOROPSO BOTHEYES
[2023-04-08 07:14] LABS: BASOPHILS ABSOLUTE AUTO 0.06 K/mm3 (0.00-0.23); BASOPHILS PERCENT AUTO 1 % (0-2); EOSINOPHILS ABSOLUTE AUTO 0.24 K/mm3 (0.00-0.68); EOSINOPHILS PERCENT AUTO 2 % (0-6); Hematocrit 45.6 % (37.0-53.0); Hemoglobin 14.2 g/dL (13.5-17.5); IMMATURE GRAN ABSOLUTE AUTO 0.05 K/mm3 (0.00-0.10); IMMATURE GRAN PERCENT AUTO 1 % (0-1); LYMPHOCYTES ABSOLUTE AUTO 1.31 K/mm3 (0.84-5.20); LYMPHOCYTES PERCENT AUTO 12 % (21-46); MONOCYTES ABSOLUTE AUTO 0.86 K/mm3 (0.16-1.47); MONOCYTES PERCENT AUTO 8 % (4-13); Mean Corpuscular HGB 27.2 pg (26.0-34.0); Mean Corpuscular HGB Conc 31.1 g/dL (31.5-36.5); Mean Corpuscular Volume 87 fL (80-100); Mean Platelet Volume 10.8 fL (9.1-12.4); NEUTROPHILS ABSOLUTE AUTO 8.11 K/mm3 (1.96-9.15); NEUTROPHILS PERCENT AUTO 76 % (41-73); Platelet Count 226 K/mm3 (150-400); RDW Standard Deviation 48.3 fL (35.1-46.3); Red Blood Cell Count 5.22 M/mm3 (4.30-5.90); White Blood Cell Count 10.63 K/mm3 (4.00-11.30)
[2023-04-08 07:39] LABS: Albumin, Blood 3.5 g/dL (3.4-5.0); Bilirubin, Total 0.6 mg/dL (0.1-1.0); Bun/Creatinine Ratio 27.7 (12.0-20.0); Calcium, Blood 8.8 mg/dL (8.5-10.1); Creatinine, Blood 1.01 mg/dL (0.60-1.20); Globulin, Blood 3.5 g/dL (2.2-4.0); Potassium, Blood 4.2 mmol/L (3.5-5.5)
[2023-04-08] MEDS ORDERED: OMEP20ER PO (08:37)
[2023-04-08 10:01] LABS: Hematocrit 43.4 % (37.0-53.0); Hemoglobin 13.3 g/dL (13.5-17.5)
[2023-04-08 13:13] VITALS: BP 156/96
[2023-04-08] MEDS ORDERED: ACET500 (16:17)
[2023-04-08 16:29] VITALS: BP 166/91
[2023-04-08 18:10] LABS: Hematocrit 42.4 % (37.0-53.0); Hemoglobin 13.4 g/dL (13.5-17.5)
--- NOTE | 2023-04-08 18:40 | NUR ---
SHIFT SUMMARY: PT IS A 73 YEAR OLD MALE HERE FOR A GI BLEED. HE RECENTLY UNDERWENT AN ENDOSCOPY AND STARTED EXPERIENCING RECTAL BLEEDING LAST NIGHT. HIS HEMOGLOBIN DID TREND DOWN FROM 14.2 TO 13.3 TO NOW 13.4. CONTINING TO CHECK H&H Q8 HRS. HE IS STAND BY/INDEPENDENT IN THE ROOM, CALLS APPROPRIATELY. ALERT AND ORIENTED. GOT AN ORDER FOR MORGAN TO HAVE PATIENT ON CLEAR LIQUID DIET AND PLANS TO START WATER/ICE CHIP DIET AT 0800 04/09/23 IN PREPARATION FOR COLONOSCOPY WITH DR. LINDSAY. NO INSTANCES OF BLOODY STOOL SINCE HE HAS BEEN ON THE FLOOR. HE IS IN BED, CALL LIGHT WITHIN REACH, NO SIGNS OR SYMPTOMS OF DISTRESS. PLAN OF CARE ONGOING.
[2023-04-08 19:18] VITALS: BP 157/89
[2023-04-09 02:12] LABS: BASOPHILS ABSOLUTE AUTO 0.04 K/mm3 (0.00-0.23); BASOPHILS PERCENT AUTO 1 % (0-2); EOSINOPHILS ABSOLUTE AUTO 0.21 K/mm3 (0.00-0.68); EOSINOPHILS PERCENT AUTO 2 % (0-6); Hematocrit 40.6 % (37.0-53.0); Hemoglobin 12.6 g/dL (13.5-17.5); IMMATURE GRAN ABSOLUTE AUTO 0.02 K/mm3 (0.00-0.10); IMMATURE GRAN PERCENT AUTO 0 % (0-1); LYMPHOCYTES ABSOLUTE AUTO 1.29 K/mm3 (0.84-5.20); LYMPHOCYTES PERCENT AUTO 15 % (21-46); MONOCYTES ABSOLUTE AUTO 0.84 K/mm3 (0.16-1.47); MONOCYTES PERCENT AUTO 10 % (4-13); Mean Corpuscular HGB 27.2 pg (26.0-34.0); Mean Corpuscular Volume 88 fL (80-100); Mean Platelet Volume 10.2 fL (9.1-12.4); NEUTROPHILS ABSOLUTE AUTO 6.39 K/mm3 (1.96-9.15); NEUTROPHILS PERCENT AUTO 73 % (41-73); Platelet Count 182 K/mm3 (150-400); RDW Coefficient Variation 15.1 % (11.7-14.2); RDW Standard Deviation 48.4 fL (35.1-46.3); Red Blood Cell Count 4.63 M/mm3 (4.30-5.90); White Blood Cell Count 8.79 K/mm3 (4.00-11.30)
[2023-04-09 02:40] LABS: Albumin, Blood 3.1 g/dL (3.4-5.0); Bilirubin, Total 0.8 mg/dL (0.1-1.0); Bun/Creatinine Ratio 16.3 (12.0-20.0); Calcium, Blood 8.7 mg/dL (8.5-10.1); Creatinine, Blood 0.92 mg/dL (0.60-1.20); Total Protein, Blood 6.1 g/dL (6.4-8.2)
[2023-04-09 04:17] VITALS: BP 154/95
--- NOTE | 2023-04-09 06:33 | NUR ---
SHIFT SUMMARY PT LAYING IN BED DURING BEDSIDE ROUNDS, PT DENIES PAIN IN ABDOMEN, IV INFUSING, OXYGEN AT 2L WHICH IS BASELINE- PT UP TO BR X 2 IN NIGHT -NO EPISODES OF BOWEL MOVEMENTS, PT CLEAR LIQUDS T/O NIGHT-- SCDS IN PLACE- BED LOW POSITION, CALL LIGHT IN PLACE
[2023-04-09 07:47] VITALS: BP 161/86
[2023-04-09 15:22] VITALS: BP 152/96
--- NOTE | 2023-04-09 16:48 | NUR ---
SHIFT SUMMARY PATIENT ALERT AND ORIENTED. PATIENT ABLE TO GET UP TO COMMODE INDEPENDENTLY. BOWEL PREP DONE WITH 2 GALLONS OF GOLYTELY. PATIENT CONTINUES TO HAVE BROWN COLORED LIQUID STOOLS. PLAN TO ALLOW PATINET TO HAVE CLEAR LIQUIDS TONIGHT, ATTEMPT MORE GOLYTELY IN THE MORNING FOR LOWER ENDOSCOPY IN THE AFTERNOON.
[2023-04-09 20:35] VITALS: BP 156/92
--- NOTE | 2023-04-10 04:07 | NUR ---
SHIFT SUMMARY *EUN WAS ALERT AND FULLY ORIENTED AT THE START OF THE SHIFT. HE IS PLEASANT AND COOPERATIVE. I NOTED THAT HE HAS BEEN RUNNING CBG'S IN THE HIGH 200'S TO 300. EVENING CBG'S TODAY WERE 270. DR. CADENA NOTIFIED OF PT'S CBG TREND, AND PT'S HOME INSULIN USE. HE ORDERED 10u INSULIN GLARGINE AT BEDTIME ONLY AT THIS TIME BECAUSE THE PT IS NPO AWAITING LOWER ENDOSCOPY TOMORROW AFTERNOON. PT HAD A SIP OF WATER WITH TYLENOL AT 0100, OK'D BY DR. CADENA WHEN ORDER WAS PLACED. PT RESTING IN BED, INDEPENDENT TO BEDSIDE COMMODE, CALL LIGHT IN REACH.
[2023-04-10 07:36] VITALS: BP 159/84
[2023-04-10 10:37] LABS: BASOPHILS ABSOLUTE AUTO 0.03 K/mm3 (0.00-0.23); BASOPHILS PERCENT AUTO 0 % (0-2); EOSINOPHILS ABSOLUTE AUTO 0.17 K/mm3 (0.00-0.68); EOSINOPHILS PERCENT AUTO 2 % (0-6); Hematocrit 41.2 % (37.0-53.0); Hemoglobin 12.6 g/dL (13.5-17.5); IMMATURE GRAN ABSOLUTE AUTO 0.03 K/mm3 (0.00-0.10); IMMATURE GRAN PERCENT AUTO 0 % (0-1); LYMPHOCYTES ABSOLUTE AUTO 0.81 K/mm3 (0.84-5.20); LYMPHOCYTES PERCENT AUTO 11 % (21-46); MONOCYTES ABSOLUTE AUTO 0.61 K/mm3 (0.16-1.47); MONOCYTES PERCENT AUTO 8 % (4-13); Mean Corpuscular HGB 27.3 pg (26.0-34.0); Mean Corpuscular HGB Conc 30.6 g/dL (31.5-36.5); Mean Corpuscular Volume 89 fL (80-100); Mean Platelet Volume 11.1 fL (9.1-12.4); NEUTROPHILS ABSOLUTE AUTO 5.71 K/mm3 (1.96-9.15); NEUTROPHILS PERCENT AUTO 78 % (41-73); Platelet Count 172 K/mm3 (150-400); Red Blood Cell Count 4.61 M/mm3 (4.30-5.90); White Blood Cell Count 7.36 K/mm3 (4.00-11.30)
[2023-04-10 11:07] LABS: Calcium, Blood 8.4 mg/dL (8.5-10.1); Creatinine, Blood 0.83 mg/dL (0.60-1.20); Potassium, Blood 3.9 mmol/L (3.5-5.5)
--- NOTE | 2023-04-10 13:55 | NUR ---
PT HAS 18G IV TO RIGHT AC THAT FLUSHES WELL AND FLOWS TO GRAVITY.
[2023-04-10 14:01] VITALS: BP 188/91
--- NOTE | 2023-04-10 14:10 | NUR ---
PT BROUGHT FROM FLOOR TO DAY SURGERY FOR PROCEDURE.
--- NOTE | 2023-04-10 14:50 | NUR ---
04/10/23 1450 Maryann Shields History, Chart, Medications and Allergies reviewed before start of procedure.MONITOR INTACT WITH CONTINUOUS PULSE OXIMETRY, CONTINUOUS END TITAL CO2, AND INTERMITTENT BLOOD PRESSURE.3-LEAD EKG REVIEWED WITH PHYSICIAN PRIOR TO START OF PROCEDURE.O2 VIA N/C INTACT THROUGHOUT SEDATION/PROCEDURE.MAC PER .
[2023-04-10 16:00] VITALS: BP 176/96
[2023-04-10 16:37] VITALS: BP 162/88
--- NOTE | 2023-04-10 17:35 | NUR ---
DISCHARGE SUMMARY PT DISCHARGED HOME AT APPROX 1700 WITH TRANSPORTATION FROM HIS SON. PT IS AxOx4. PLEASANT AND COOPERATIVE WITH CARE. PT HAD COLONOSCOPY THIS AFTERNOON. RETURNED FROM PROCEDURE AT APPROX 1545. PT'S VITALS AND GAIT MONITORED PRIOR TO DC. PT PROVIDED DC INSTRUCTIONS INCLUDING DC MED LIST, FOLLOW UP W/PCP APPT INFO, DIET RECOMMENDATIONS AND OTHER PT EDUCATION REGARDING DIANOSIS AND PROCEDURE AFTER CARE. PT VERBALIZED UNDERSTANDING AND STATES HE "FEELS READY TO GO HOME." PT WAS SAFELY ESCORTED OUT VIA WC BY THIS RN.
== END 2023-04-10 17:10 | disposition home or self-care (01) ==
LOC: ER 06:29 → MEDS 06:30
PROVIDERS: Emergency Medicine; ADMIT Internal Medicine
DX: K92.1 Melena (principal); K21.9 Gastro-esophageal reflux disease without esophagitis; I13.0 Hypertensive heart and chronic kidney disease with heart failure and stage 1 through stage 4 chronic kidney disease, or unspecified chronic kidney disease; E11.22 Type 2 diabetes mellitus with diabetic chronic kidney disease; N18.30 Chronic kidney disease, stage 3 unspecified; I50.30 Unspecified diastolic (congestive) heart failure; E78.5 Hyperlipidemia, unspecified; E03.9 Hypothyroidism, unspecified; G47.33 Obstructive sleep apnea (adult) (pediatric); F41.3 Other mixed anxiety disorders; N40.0 Benign prostatic hyperplasia without lower urinary tract symptoms; Z88.5 Allergy status to narcotic agent; Z79.890 Hormone replacement therapy; Z79.4 Long term (current) use of insulin; Z79.899 Other long term (current) drug therapy
CPT/HCPCS: 36415; 80048; 80053; 82947; 85014; 85018; 85025; 86850; 86900; 86901; 96361; 96374; 96376; 99285-25; A9270; C9113; G0378; J1815; J2704; J7030; J7120

== ENCOUNTER 2023-07-13 08:00 | Emergency (ER) | payer OTHER ==
[~2023-07-13] VITALS: Ht 177.8 cm; Wt 145.2 kg
[~2023-07-13 08:00] MED LIST changes: +ACET500; +OMEP20ER PO
[2023-07-13 09:03] LABS: BASOPHILS ABSOLUTE AUTO 0.02 K/mm3 (0.00-0.23); BASOPHILS PERCENT AUTO 0 % (0-2); EOSINOPHILS ABSOLUTE AUTO 0.07 K/mm3 (0.00-0.68); EOSINOPHILS PERCENT AUTO 1 % (0-6); Hematocrit 49.7 % (37.0-53.0); Hemoglobin 15.3 g/dL (13.5-17.5); IMMATURE GRAN ABSOLUTE AUTO 0.07 K/mm3 (0.00-0.10); IMMATURE GRAN PERCENT AUTO 1 % (0-1); LYMPHOCYTES ABSOLUTE AUTO 0.24 K/mm3 (0.84-5.20); LYMPHOCYTES PERCENT AUTO 2 % (21-46); MONOCYTES PERCENT AUTO 5 % (4-13); Mean Corpuscular HGB 26.2 pg (26.0-34.0); Mean Corpuscular HGB Conc 30.8 g/dL (31.5-36.5); Mean Corpuscular Volume 85 fL (80-100); Mean Platelet Volume 10.3 fL (9.1-12.4); NEUTROPHILS ABSOLUTE AUTO 10.13 K/mm3 (1.96-9.15); NEUTROPHILS PERCENT AUTO 91 % (41-73); Platelet Count 196 K/mm3 (150-400); RDW Coefficient Variation 15.6 % (11.7-14.2); RDW Standard Deviation 47.9 fL (35.1-46.3); Red Blood Cell Count 5.83 M/mm3 (4.30-5.90); White Blood Cell Count 11.13 K/mm3 (4.00-11.30)
[2023-07-13 09:16] LABS: Albumin, Blood 3.6 g/dL (3.4-5.0); Albumin/Globulin Ratio 0.9 (0.8-1.8); Bilirubin, Total 1.3 mg/dL (0.1-1.0); Bun/Creatinine Ratio 25.2 (12.0-20.0); Calcium, Blood 9.6 mg/dL (8.5-10.1); Creatinine, Blood 0.91 mg/dL (0.60-1.20); Globulin, Blood 3.9 g/dL (2.2-4.0); Potassium, Blood 3.9 mmol/L (3.5-5.5); Total Protein, Blood 7.5 g/dL (6.4-8.2)
[2023-07-13 09:58] LABS: Influenza A, PCR NEGATIVE (NEGATIVE); Influenza B, PCR NEGATIVE (NEGATIVE); Resp Syncytial Virus, PCR NEGATIVE (NEGATIVE); SARS-Cov-2 (COVID-19) PCR, MMC NEGATIVE (NEGATIVE)
[2023-07-13] MEDS ORDERED: Ketorolac Tromethamine 30mg Vial IV ONE (10:40)
[2023-07-13] MEDS ORDERED: NS 1,000 ML IV SCH (10:40)
[2023-07-13] MEDS ORDERED: Ondansetron HCl 2 MG / ML 2ML Vial IV ONE (10:40)
[2023-07-13 10:56] LABS: Source, Urine Clean Catch
[2023-07-13 11:00] LABS: Appearance, Urine Clear (Clear); Bilirubin, Urine Neg (Neg); Blood, Urine 3+ (Neg); Color, Urine Yellow (P-Yellow); Glucose Qualitative, Urine 2+ (Neg); Ketones, Urine 2+ (Neg); Leukocyte Esterase, Urine Neg (Neg); Nitrite, Urine Neg (Neg); Protein, Urine 1+ (Neg); Specific Gravity, Urine 1.015 (1.003-1.022); Urobilinogen, Urine NORM (Normal)
[2023-07-13 11:33] LABS: Red Blood Cells, Urine 0-2 /hpf (0-2); White Blood Cells, Urine 0-2 /hpf (0-5)
[2023-07-13 11:34] LABS: Bacteria Rare /hpf; Mucus Light (0-Heavy); Squamous Epithelial Cells Few /hpf (Few)
[2023-07-13] MEDS ORDERED: Insulin NPH 100 Unit / ML 10ML Vial SC ONE (12:25)
[2023-07-13] MEDS ORDERED: METO10 PO (12:47)
[2023-07-13] MEDS ORDERED: ONDA4ODT MM (12:47)
[2023-07-13 13:14] VITALS: BP 137/91
== END 2023-07-13 13:10 | disposition home or self-care (01) ==
LOC: ER 08:00
PROVIDERS: Student in an Organized Health Care Education/Training Program
DX: K52.9 Noninfective gastroenteritis and colitis, unspecified (principal); E86.0 Dehydration; I10 Essential (primary) hypertension; E78.5 Hyperlipidemia, unspecified; E11.9 Type 2 diabetes mellitus without complications; E03.9 Hypothyroidism, unspecified; Z88.5 Allergy status to narcotic agent; Z79.899 Other long term (current) drug therapy; Z79.890 Hormone replacement therapy; Z79.4 Long term (current) use of insulin; Z79.84 Long term (current) use of oral hypoglycemic drugs
CPT/HCPCS: 0241U; 74177; 80053; 81001; 85025; 96374-59; 96375; 99284-25; J1815; J1885; J2405; J7030; Q9967

== ENCOUNTER 2023-09-10 14:57 | Inpatient (IN) | payer OTHER ==
[~2023-09-10] VITALS: Ht 177.8 cm; Wt 112.2 kg
[~2023-09-10 14:57] MED LIST changes: +METO10 PO; +ONDA4ODT MM
[2023-09-10 17:12] LABS: Albumin, Blood 3.1 g/dL (3.4-5.0); Albumin/Globulin Ratio 0.7 (0.8-1.8); Bilirubin, Indirect 1.2 mg/dL (0.1-0.7); Bilirubin, Total 2.2 mg/dL (0.1-1.0); Bun/Creatinine Ratio 21.8 (12.0-20.0); Calcium, Blood 9.6 mg/dL (8.5-10.1); Creatinine, Blood 1.01 mg/dL (0.60-1.20); Globulin, Blood 4.3 g/dL (2.2-4.0); Potassium, Blood 4.1 mmol/L (3.5-5.5); Total Protein, Blood 7.4 g/dL (6.4-8.2)
[2023-09-10 18:07] LABS: Base Excess Venous 5.9 mmol/L; Bicarbonate Venous 28.5 mmol/L (24.0-30.0); PCO2 Venous 49.8 mmHg (38-42)
[2023-09-10 18:38] LABS: BASOPHILS ABSOLUTE AUTO 0.05 K/mm3 (0.00-0.23); BASOPHILS PERCENT AUTO 0 % (0-2); EOSINOPHILS PERCENT AUTO 4 % (0-6); Hematocrit 43.6 % (37.0-53.0); Hemoglobin 13.7 g/dL (13.5-17.5); IMMATURE GRAN PERCENT AUTO 1 % (0-1); LYMPHOCYTES ABSOLUTE AUTO 0.92 K/mm3 (0.84-5.20); LYMPHOCYTES PERCENT AUTO 8 % (21-46); MONOCYTES ABSOLUTE AUTO 1.03 K/mm3 (0.16-1.47); MONOCYTES PERCENT AUTO 9 % (4-13); Mean Corpuscular HGB Conc 31.4 g/dL (31.5-36.5); Mean Corpuscular Volume 86 fL (80-100); NEUTROPHILS ABSOLUTE AUTO 9.06 K/mm3 (1.96-9.15); NEUTROPHILS PERCENT AUTO 78 % (41-73); Platelet Count 301 K/mm3 (150-400); RDW Coefficient Variation 16.6 % (11.7-14.2); RDW Standard Deviation 50.4 fL (35.1-46.3); Red Blood Cell Count 5.08 M/mm3 (4.30-5.90); White Blood Cell Count 11.66 K/mm3 (4.00-11.30)
[2023-09-10] MEDS ORDERED: Benzonatate 100 MG Cap PO PRN (19:40)
[2023-09-10] MEDS ORDERED: Ondansetron HCl 2 MG / ML 2ML Vial IV PRN ×3 (19:40→19:45)
[2023-09-10] MEDS ORDERED: FentaNYL Citrate 50 MCG/ML 2 ML Injection IV PRN (19:45)
[2023-09-10] MEDS ORDERED: NS 1,000 ML IV SCH (19:45)
[2023-09-10] MEDS ORDERED: Ipratropium/Albuterol SulF 2.5-0.5MG/3 ML Amp INH PRN (19:50)
[2023-09-10] MEDS ORDERED: MetroNIDAZOLE 500MG/NS 100 ml 100 ML IV SCH (20:00)
[2023-09-10] MEDS ORDERED: NOVOLIN 70100 UNIT/4 SC (20:22)
[2023-09-10 20:34] LABS: International Normalized Ratio 1.04; Prothrombin Time Results 10.9 Sec (9.7-11.5)
[2023-09-10 20:41] LABS: Source, Urine Clean Catch
[2023-09-10 20:50] LABS: Appearance, Urine Clear (Clear); Bilirubin, Urine Neg (Neg); Blood, Urine 1+ (Neg); Color, Urine Yellow (P-Yellow); Glucose Qualitative, Urine Neg (Neg); Ketones, Urine Neg (Neg); Leukocyte Esterase, Urine Neg (Neg); Nitrite, Urine Neg (Neg); Protein, Urine 1+ (Neg); Urobilinogen, Urine 1+ (Normal)
[2023-09-10] MEDS ORDERED: Lactobacil 2-S.Thermo-Bifido 1 1 Cap PO SCH (21:00)
[2023-09-10] MEDS ORDERED: Insulin Human Lispro 100 Units/ML 3ML Syringe SC SCH (21:00)
[2023-09-10] MEDS ORDERED: GuaiFENesin 600 MG TabCR PO SCH (21:00)
[2023-09-10] MEDS ORDERED: Dorzolamide/Timolol Opth Soln 10 ML BOTHEYES SCH (21:00)
[2023-09-10] MEDS ORDERED: CefTRIAXone Sodium 1,000 MG in NS 100 ML IV SCH (21:00)
[2023-09-10] MEDS ORDERED: Latanoprost 0.005% Opth Soln 2.5 ML BOTHEYES SCH (21:00)
[2023-09-10 21:03] LABS: Bacteria Mod /hpf; Mucus Light (0-Heavy); Red Blood Cells, Urine 0-2 /hpf (0-2); Squamous Epithelial Cells Few /hpf (Few); White Blood Cells, Urine 0-2 /hpf (0-5)
[2023-09-11 04:20] VITALS: BP 159/78
[2023-09-11 05:26] LABS: Adenovirus Not Detected (NOT DETECT); Bordetella pertussis Not Detected (NOT DETECT); Chlamydophila pneumoniae Not Detected (NOT DETECT); Coronavirus 229E Not Detected (NOT DETECT); Coronavirus HKU1 Not Detected (NOT DETECT); Coronavirus NL63 Not Detected (NOT DETECT); Coronavirus OC43 Not Detected (NOT DETECT); Human Metapneumovirus Not Detected (NOT DETECT); Human Rhinovirus/Enterovirus Not Detected (NOT DETECT); Influenza A/2009-H1 Not Detected (NOT DETECT); Influenza A/H1 Not Detected (NOT DETECT); Influenza A/H3 Not Detected (NOT DETECT); Influenza B Not Detected (NOT DETECT); Mycoplasma pneumoniae Not Detected (NOT DETECT); Parainfluenza Virus 1 Not Detected (NOT DETECT); Parainfluenza Virus 2 Not Detected (NOT DETECT); Parainfluenza Virus 3 Not Detected (NOT DETECT); Parainfluenza Virus 4 Not Detected (NOT DETECT); Respiratory Syncytial Virus Not Detected (NOT DETECT); SARS-Cov-2 (COVID-19), BioFire Not Detected (NOT DETECT)
--- NOTE | 2023-09-11 05:39 | NUR ---
SHIFT SUMMARY NOC ADMIT FROM ED WITH ELEVATED LIVER ENZYMES. PT A/O X 4. PLEASANT AND COOPERATIVE WITH CARE. NPO. VSS. CBG 89. O2 BASELIND O2 3L/NC SPO2 >92%. PT HAS SOME REDNESS ON COCCYX AND IN BOTH GROIN FOLDS. PT RECEIVING INFUSION OF NS @ 75 ML/HR X 1 BAG. IV ROCEPHIN AND FLAGYL ABX ORDERED. PT HAS C/O OF LLQ PAIN BUT DID NOT REQUEST ANY PAIN RX. 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 PT CURRENTLY RESTING [facility] BED IN LOWEST POSITION, AND CALL LIGHT WITHIN REACH.
[2023-09-11] MEDS ORDERED: Levothyroxine Sodium 0.1 MG Tab PO SCH (06:00)
[2023-09-11] MEDS ORDERED: Omeprazole 20 MG CapCR PO SCH (06:00)
[2023-09-11 06:06] LABS: Hematocrit 43.4 % (37.0-53.0); Hemoglobin 13.7 g/dL (13.5-17.5); Mean Corpuscular HGB 27.6 pg (26.0-34.0); Mean Corpuscular HGB Conc 31.6 g/dL (31.5-36.5); Mean Corpuscular Volume 88 fL (80-100); Mean Platelet Volume 10.5 fL (9.1-12.4); Platelet Count 248 K/mm3 (150-400); RDW Coefficient Variation 17.6 % (11.7-14.2); RDW Standard Deviation 51.5 fL (35.1-46.3); Red Blood Cell Count 4.96 M/mm3 (4.30-5.90); White Blood Cell Count 10.82 K/mm3 (4.00-11.30)
[2023-09-11 07:38] VITALS: BP 148/86
[2023-09-11] MEDS ORDERED: Lisinopril 20 MG Tab PO SCH (09:00)
[2023-09-11] MEDS ORDERED: Sertraline HCl 100 MG Tab PO SCH (09:00)
[2023-09-11] MEDS ORDERED: buPROPion HCL 150 MG TAB.SR.12H PO SCH (09:00)
[2023-09-11] MEDS ORDERED: AmLODIPine Besylate 5 MG Tab PO SCH (09:00)
[2023-09-11] MEDS ORDERED: Tamsulosin HCl 0.4 MG Cap PO SCH (09:00)
[2023-09-11] MEDS ORDERED: Enoxaparin 40 MG/0.4 ML SYR SC SCH (09:00)
[2023-09-11] MEDS ORDERED: Metoprolol Succinate 25 MG TABCR PO SCH (09:00)
[2023-09-11 15:43] VITALS: BP 134/78
[2023-09-11 18:17] LABS: Albumin/Globulin Ratio 0.8 (0.8-1.8); Bilirubin, Total 1.2 mg/dL (0.1-1.0); Bun/Creatinine Ratio 24.5 (12.0-20.0); Calcium, Blood 9.7 mg/dL (8.5-10.1); Creatinine, Blood 1.02 mg/dL (0.60-1.20); Potassium, Blood 4.4 mmol/L (3.5-5.5)
--- NOTE | 2023-09-11 19:00 | NUR ---
DAY SHIFT SUMMARY: A&Ox4. PLEASANT AND COOPERATIVE WITH CARE. CALLS APPROPRIATELY AND IS ABLE TO COMMUNICATE NEEDS EFFECTIVELY. UNSTEAD ON FEET; STANDBY ASSIST FOR AMBULATION AND TRANSFERS. BENZONOTATE ADMINISTERED FOR C/O COUGH. NO ACUTE CONCERNS T/O SHIFT. REPORT TO ONCOMING RN.
[2023-09-11 20:41] VITALS: BP 155/76
[2023-09-12] MEDS ORDERED: HydrALAZINE HCl 20 MG / ML 1ML Vial IV PRN (00:15)
[2023-09-12] MEDS ORDERED: FentaNYL Citrate 50 MCG/ML 2 ML Injection IV PRN (01:44)
[2023-09-12] MEDS ORDERED: FentaNYL Citrate 50 MCG/ML 2 ML Injection IV ONE (01:45)
[2023-09-12 01:51] VITALS: BP 152/62
[2023-09-12] MEDS ORDERED: Ketorolac Tromethamine 15mg Vial IV ONE (03:00)
--- NOTE | 2023-09-12 03:08 | NUR ---
PT REPORTING INCREASED ABD PAIN ACROSS ENTIRE ABD NOT JUST LLQ. PT REPORTS FEELING IF THEY ARE REALLY FULL. VSS. FENTANYL 25 MCG IV AND ZOFRAN 4 MG IV GIVEN FOR NAUSEA. WENT TO REASSESS AND PT REPORTED THAT BOTH RX DID NOT RELIEVE SYMPTOMS EFFECTIVELY. HOSPITALIST NOTIFIED AND FENTANYL INCREASED TO 50 MCG. EKG ALSO ORDERED PER HOSPITALIST. TORADOL 15 MG IV X 1 ALSO GIVEN FOR PAIN.
[2023-09-12 05:24] LABS: International Normalized Ratio 1.01; Prothrombin Time Results 10.6 Sec (9.7-11.5)
--- NOTE | 2023-09-12 05:31 | NUR ---
SHIFT SUMMARY NOC PT A/O X 4. PLEASANT AND COOPERATIVE WITH CARE. BP SLIGHTLY ELEVATED. MD ORDERED HYDRALAZINE PRN. PT HAD C/O OF LLQ PAIN AND NAUSUA AND WAS MEDICATED PER EMAR. HEPATITIS PANEL IS STILL PENDING. PT ON O2 3L/NC WHICH IS THEIR BASELING DUE TO CHRONIC RESPIRATORY FAILURE. PT HS CBG 263 WITH CNI. PT IS CURRENTLY RESTING WITH BED IN LOWEST POSITION, AND CALL LIGHT WITHIN REACH.
[2023-09-12 05:48] LABS: Albumin, Blood 2.8 g/dL (3.4-5.0); Albumin/Globulin Ratio 0.7 (0.8-1.8); Bilirubin, Total 1.3 mg/dL (0.1-1.0); Bun/Creatinine Ratio 28.2 (12.0-20.0); Calcium, Blood 9.1 mg/dL (8.5-10.1); Creatinine, Blood 0.85 mg/dL (0.60-1.20); Globulin, Blood 3.8 g/dL (2.2-4.0); Potassium, Blood 5.7 mmol/L (3.5-5.5); Total Protein, Blood 6.6 g/dL (6.4-8.2)
[2023-09-12] MEDS ORDERED: Insulin Regular 100 UNIT/ML 10ML Vial IV ONE (06:35)
[2023-09-12] MEDS ORDERED: Dextrose 50% 50 ML Syringe IV ONE (06:35)
[2023-09-12 07:51] VITALS: BP 150/90
--- NOTE | 2023-09-12 13:24 | NUR ---
ASSUMPTION OF CARE AFTER RECEIVING REPORT FROM BOUBACAR HERRERA RN.
--- NOTE | 2023-09-12 14:04 | NUR ---
MEDICATED PRN ZOFRAN C/O NAUSEA.
--- NOTE | 2023-09-12 14:07 | NUR ---
CALL TO DR. SERRATO: GIVE 15MG IV TORADOL NOW, THEN Q8H PRN.
[2023-09-12] MEDS ORDERED: Ketorolac Tromethamine 15mg Vial IV PRN (14:15)
[2023-09-12 15:12] VITALS: BP 154/90
--- NOTE | 2023-09-12 18:28 | NUR ---
DAY SHIFT SUMMARY: A&Ox4. PLEASANT AND COOPERATIVE WITH CARE. CALLLS APPROPRIATELY AND ADVOCATES NEEDS EFFECTIVELY. MEDICATED WITH ZOFRAN C/O NAUSEA. OBTAINED ORDER FOR TORADOL Q8H PRN HE FOUND THIS TO BE MORE EFFECTIVE THAN FENTANYL. 2LPM/NC. 4u HUMALOG AT DINNER TIME. SBA FOR TRANSFERS AND AMBULATION. NO ACUTE CONCERNS TODAY. REPORT TO ONCOMING RN.
[2023-09-12 19:04] LABS: HEPATITIS A ANTIBODY, IGM Negative (Negative); HEPATITIS B CORE ANTIBODY, IGM Negative (Negative); HEPATITIS B SURFACE ANTIGEN Negative (Negative); HEPATITIS C AB CIA INTERP Negative (Negative); HEPATITIS C ANTIBODY CIA INDEX <0.02 IV
[2023-09-12 22:31] VITALS: BP 156/84
[2023-09-13 04:21] VITALS: BP 151/70
--- NOTE | 2023-09-13 04:31 | NUR ---
SHIFT SUMMARY PATIENT HAD PERSISTENT ABD PAIN ALL NIGHT. HE ALSO HAD NAUSEA, NO EMESIS. CONTINUOUS O2/3L/NC. WAS ABLE TO SLEEP IN SHORT INTERVALS
[2023-09-13 06:19] LABS: Albumin, Blood 2.8 g/dL (3.4-5.0); Albumin/Globulin Ratio 0.7 (0.8-1.8); Bilirubin, Total 1.3 mg/dL (0.1-1.0); Bun/Creatinine Ratio 18.6 (12.0-20.0); Calcium, Blood 9.1 mg/dL (8.5-10.1); Creatinine, Blood 0.86 mg/dL (0.60-1.20); Globulin, Blood 3.9 g/dL (2.2-4.0); Potassium, Blood 6.3 mmol/L (3.5-5.5); Total Protein, Blood 6.7 g/dL (6.4-8.2)
[2023-09-13] MEDS ORDERED: Insulin Regular 100 UNIT/ML 10ML Vial IV ONE (06:35)
[2023-09-13] MEDS ORDERED: Dextrose 50% 50 ML Syringe IV ONE (06:35)
[2023-09-13] MEDS ORDERED: Calcium Gluconate 10% 1,000 MG in NS 50 ML IV ONE (06:35)
[2023-09-13] MEDS ORDERED: Dextrose 5% 250 ML IV SCH (06:50)
[2023-09-13] MEDS ORDERED: CALCIUM GLUC IN NACL, ISO-OSM 50 ML IV ONE (06:55)
[2023-09-13 07:11] VITALS: BP 161/106
[2023-09-13] MEDS ORDERED: Metoprolol Succinate 25 MG TABCR PO SCH (09:00)
[2023-09-13 09:43] VITALS: BP 147/83
[2023-09-13 11:51] VITALS: BP 147/76
[2023-09-13 12:01] LABS: HEPATITIS A ANTIBODY, IGM Negative (Negative); HEPATITIS B CORE ANTIBODY, IGM Negative (Negative); HEPATITIS B SURFACE ANTIGEN Negative (Negative); HEPATITIS C AB CIA INTERP Negative (Negative); HEPATITIS C ANTIBODY CIA INDEX 0.06 IV
--- NOTE | 2023-09-13 12:07 | NUR ---
PHYSICIAN CONTACT CONTACTED DR SERRATO REGARDING PTS COMPLAIN OF CHEST PRESSURE AND EPIGASTRIC PAIN. EKG PERFORMED, FENTANYL GIVEN, VITALS AND BLOOD GLUCOSE PERFORMED. DOC STATED HE WOULD BE UP TO THE FLOOR SHORTLY. PATIENT A/O X4, PALE, NAUSEATED AND MEDICATED WITH ZOFRAN, ON 3LITERS O2, LYING IN BED AND INSTRUCTED TO CALL FOR ANYTHING OR WORSENING SYMPTOMS. CARES ONGOING.
[2023-09-13] MEDS ORDERED: Nitroglycerin 0.4 MG SUBL SL PRN (12:50)
[2023-09-13] MEDS ORDERED: Insulin Isoph 70 / Reg 30 100 Unit/ML 10ML Vial SC SCH (13:00)
[2023-09-13 13:27] LABS: Calcium, Blood 9.5 mg/dL (8.5-10.1); Creatinine, Blood 0.81 mg/dL (0.60-1.20); Potassium, Blood 4.5 mmol/L (3.5-5.5)
--- NOTE | 2023-09-13 15:15 | NUR ---
SHIFT SUMMARY C/O CHEST PAIN/EPIGASTRIC PAIN THIS SHIFT. DOC MADE AWARE, ORDERS PLACED. STRESS TEST ORDERED. 2ND HALF TO BE COMPLETE TOMORROW AT 1100. PLACED NPO AFTER MIDNIGHT, PATIENT AGREEABLE. ON 3 LITERS O2 BASELINE, DYSPNEA WITH EXERTION. ABLE TO AMBULATE WITH 1-SBA. CHEST PAIN/PRESSURE MOSTLY RESOLVED LATER IN SHIFT. CALL LIGHT IN REACH, ABLE TO MAKE NEEDS KNOWN. CARES ONGOING.
[2023-09-13 15:38] VITALS: BP 129/73
[2023-09-13] MEDS ORDERED: Insulin Human Lispro 100 Units/ML 3ML Syringe SC SCH (16:30)
[2023-09-13 19:28] VITALS: BP 158/81
[2023-09-14] MEDS ORDERED: Metoclopramide HCl 5MG / ML 2ML Vial IV PRN (00:10)
--- NOTE | 2023-09-14 00:38 | NUR ---
PT ALERTED STAFF THROUGH THE CALL SYSTEM. PT C/O FEELING UNWELL. PT FOUND SITTING UP IN BED. HE STATED THAT HE WAS DIZZY/LIGHTHEADED AND UNABLE TO REMAIN SITTING UP IN BED. DISCUSSED SYMPTOMS AND PT STATED THAT HE FELT HIS BLOOD SUGAR MAY BE LOW. THIS RN LEFT THE ROOM TO OBTAIN THE CHEM BG MACHINE, AND AT RETURN TO THE ROOM PT WAS FOUND SITTING UP IN THE BEDSIDE CHAIR. PT'S BLOOD SUGAR WAS 145. DISCUSSED RESULT WITH PT WHO STATED THAT IT IS WITHIN HIS NORMAL RANGE. UPON FURTHER QUESTIONING OF HIS SYMPTOMS, PT STATED THAT HE FELT THOUGH HE HAD BEEN RUNNING A LOT AND COULDN'T GET A DEEP BREATH. PT'S LUNGS WERE DIM IN THE BASES ON AUSCULTATION AND ORDER FOR DUONEB WAS PRESENT ON PT'S JUL. O2 SATS 97-98% ON 3L VIA NC. DISCUSSED WITH RT WHO ADMINISTERED BREATHING TREATMENT. REASSESSMENT OF LUNGS WITH IMPROVED AIR MOVEMENT IN BASES. PT REPORTED MINIMAL IMPROVEMENT IN SYMPTOMS AFTER BREATHING TREATMENT. PT THEN COMPLAINED OF NAUSEA STATING "I FEEL LIKE I AM GOING TO THROW UP". CALLED ON-CALL HOSPITALIST WHO PLACED NEW ORDER, PLEASE SEE MAR. THIS RN RETURNED TO PT'S ROOM TO UPDATE HIM, PT FOUND LYING QUIETLY ON HIS LEFT SIDE IN BED, WITH EVEN, UNLABORED RESPIRATIONS. CALL LIGHT IN REACH.
[2023-09-14 03:51] VITALS: BP 149/75
[2023-09-14] MEDS ORDERED: Bismuth Subsalicylate 240 ML BTL PO ONE (04:00)
--- NOTE | 2023-09-14 04:57 | NUR ---
SHIFT SUMMARY: BRENTON IS A&OX4 WITH OCCASIONAL FORGETFULNESS, REORIENTS EASILY. PT REPORTS HE WAS ABLE TO SLEEP FOR A FEW HOURS. VSS, MAINTAINING SATS ON 3L VIA NC. PT DENIES ANY DIFFICULTY WITH ELIMINATION AND HAS BEEN NPO SINCE MIDNIGHT. IV TO LEFT HAND PATENT. HE IS LYING IN BED WITH THE CALL LIGHT IN REACH. WILL GIVE REPORT TO DAY SHIFT RN.
[2023-09-14 07:20] VITALS: BP 126/64
[2023-09-14] MEDS ORDERED: Caffeine Citrated 60 MG/3 ML Vial ONE (12:53)
[2023-09-14] MEDS ORDERED: Polyethylene Glycol 3350 17 gm PO SCH (13:00)
[2023-09-14] MEDS ORDERED: Docusate Sodium/Senna 1 Tab PO SCH (13:00)
[2023-09-14] MEDS ORDERED: Lactulose 20 GM/30 ML UDC PO SCH (13:00)
--- NOTE | 2023-09-14 13:12 | NUR ---
0.4 MG OF LEXISCAN GIVEN FOR STRESS TEST AT 1300 PER ORDER
[2023-09-14 14:29] VITALS: BP 121/68
[2023-09-14 15:11] VITALS: BP 124/61
[2023-09-14] MEDS ORDERED: Pantoprazole Sodium 40 MG Tab PO SCH (16:30)
--- NOTE | 2023-09-14 16:58 | NUR ---
SHIFT SUMMARY SOME OF PATIENTS MEDS HELD THIS AM AND GIVEN LATER DUE TO STRESS TEST. STRESS TEST COMPLETE THIS AFTERNOON, WAITING ON READING. PATIENT C/O OF EPIGASTRIC AND BACK PAIN THIS SHIFT, TOREDOL GIVEN WITH GOOD RELIEF. C/O NAUSEA, ZOFRAN AND REGLAN GIVEN, LITTLE RELIEF FROM REGLAN. BOWEL MEDICATIONS GIVEN, LACTULOSE D/C AFTER ONE DOSE, EFFECTIVE FOR 2 BOWEL MOVEMENTS. PATIENT ABLE TO SHOWER AND SIT IN CHAIR SEVERAL TIMES. DECREASED APPETITE, LITTLE INTAKE, BUT TOLERATING FLUIDS WELL. VSS. BLOOD GLUCOSE READINGS REMAIN MID 200'S THROUGHOUT SHIFT. CALL LIGHT IN REACH, ABLE TO MAKE NEEDS KNOWN. CARES ONGOING.
[2023-09-14 19:36] VITALS: BP 121/66
[2023-09-15 02:32] VITALS: BP 150/72
--- NOTE | 2023-09-15 03:41 | NUR ---
SHIFT SUMMARY Patient alert & oriented x4, calls appropriately. Reports pain t/o body. Toradol given once this shift, PRN effective. Patient denies constipation, loose BM this AM. CBGs WNL, no SSI needed at HS. Vitals stable, sats stable on 3lpm O2. Will continue plan of care, awaiting discharge planning.
[2023-09-15 05:21] LABS: Albumin, Blood 2.6 g/dL (3.4-5.0); Albumin/Globulin Ratio 0.6 (0.8-1.8); Bilirubin, Total 1.4 mg/dL (0.1-1.0); Calcium, Blood 9.2 mg/dL (8.5-10.1); Creatinine, Blood 0.86 mg/dL (0.60-1.20); Globulin, Blood 4.1 g/dL (2.2-4.0); Potassium, Blood 4.8 mmol/L (3.5-5.5); Total Protein, Blood 6.7 g/dL (6.4-8.2)
[2023-09-15 05:40] LABS: BASOPHILS ABSOLUTE AUTO 0.05 K/mm3 (0.00-0.23); BASOPHILS PERCENT AUTO 0 % (0-2); EOSINOPHILS ABSOLUTE AUTO 0.09 K/mm3 (0.00-0.68); EOSINOPHILS PERCENT AUTO 1 % (0-6); Hematocrit 38.2 % (37.0-53.0); Hemoglobin 12.2 g/dL (13.5-17.5); IMMATURE GRAN ABSOLUTE AUTO 0.17 K/mm3 (0.00-0.10); IMMATURE GRAN PERCENT AUTO 1 % (0-1); LYMPHOCYTES ABSOLUTE AUTO 1.22 K/mm3 (0.84-5.20); LYMPHOCYTES PERCENT AUTO 7 % (21-46); MONOCYTES ABSOLUTE AUTO 1.61 K/mm3 (0.16-1.47); MONOCYTES PERCENT AUTO 9 % (4-13); Mean Corpuscular HGB 27.4 pg (26.0-34.0); Mean Corpuscular HGB Conc 31.9 g/dL (31.5-36.5); Mean Corpuscular Volume 86 fL (80-100); Mean Platelet Volume 11.1 fL (9.1-12.4); NEUTROPHILS ABSOLUTE AUTO 14.45 K/mm3 (1.96-9.15); NEUTROPHILS PERCENT AUTO 82 % (41-73); Platelet Count 243 K/mm3 (150-400); RDW Coefficient Variation 15.9 % (11.7-14.2); RDW Standard Deviation 48.8 fL (35.1-46.3); Red Blood Cell Count 4.45 M/mm3 (4.30-5.90); White Blood Cell Count 17.59 K/mm3 (4.00-11.30)
[2023-09-15 07:28] VITALS: BP 122/63
[2023-09-15] MEDS ORDERED: OxyCODONE HCL 5 MG TAB PO PRN (14:35)
[2023-09-15 15:03] VITALS: BP 157/72
--- NOTE | 2023-09-15 17:52 | NUR ---
SHIFT SUMMARY PT AOX4, INDEPDENDENT IN THE ROOM. A BIT WEAK THIS AFTERNOON, NEEDED ASSISTANCE WHILE AMBULATING. MEDICATED FOR PAIN AND NAUSEA PER THE EMAR. US OF ABDOMEN DONE THIS AFTERNOON SO THE PT COULD NOT EAT 6 HOURS PRIOR. HE TOLERATED IT WELL. NO OTHER COMPLAINTS FROM THE PT AT THIS TIME. CALL LIGHT WITHIN REACH, BED LOCKED AND IN THE LOWEST POSITION. WILL REPORT TO ONCOMING NURSE.
[2023-09-15 19:50] VITALS: BP 128/74
--- NOTE | 2023-09-16 04:09 | NUR ---
SHIFT SUMMARY Patient alert & oriented x3, independent in the room. Reports ABD discomfort, and pain in lower back. Toradol given once this shift for pain. CBGs WNL, no SSI needed at HS. Humalin 70/30 insulin administred. Patient declined stool softners this shift. Vitals stable. No overnight events, Will continue plan of care.
[2023-09-16 05:08] VITALS: BP 120/63
[2023-09-16 05:11] LABS: Albumin, Blood 2.4 g/dL (3.4-5.0); Albumin/Globulin Ratio 0.6 (0.8-1.8); Bilirubin, Total 1.7 mg/dL (0.1-1.0); Bun/Creatinine Ratio 19.7 (12.0-20.0); Calcium, Blood 9.1 mg/dL (8.5-10.1); Creatinine, Blood 0.97 mg/dL (0.60-1.20); Globulin, Blood 4.2 g/dL (2.2-4.0); Potassium, Blood 4.4 mmol/L (3.5-5.5); Total Protein, Blood 6.6 g/dL (6.4-8.2)
[2023-09-16 05:23] LABS: BASOPHILS ABSOLUTE AUTO 0.04 K/mm3 (0.00-0.23); BASOPHILS PERCENT AUTO 0 % (0-2); EOSINOPHILS PERCENT AUTO 1 % (0-6); Hematocrit 36.3 % (37.0-53.0); Hemoglobin 11.5 g/dL (13.5-17.5); IMMATURE GRAN ABSOLUTE AUTO 0.26 K/mm3 (0.00-0.10); IMMATURE GRAN PERCENT AUTO 2 % (0-1); LYMPHOCYTES ABSOLUTE AUTO 1.16 K/mm3 (0.84-5.20); LYMPHOCYTES PERCENT AUTO 7 % (21-46); MONOCYTES ABSOLUTE AUTO 1.69 K/mm3 (0.16-1.47); MONOCYTES PERCENT AUTO 10 % (4-13); Mean Corpuscular HGB 27.4 pg (26.0-34.0); Mean Corpuscular HGB Conc 31.7 g/dL (31.5-36.5); Mean Corpuscular Volume 87 fL (80-100); Mean Platelet Volume 10.6 fL (9.1-12.4); NEUTROPHILS ABSOLUTE AUTO 14.29 K/mm3 (1.96-9.15); NEUTROPHILS PERCENT AUTO 82 % (41-73); Platelet Count 268 K/mm3 (150-400); RDW Coefficient Variation 15.8 % (11.7-14.2); Red Blood Cell Count 4.19 M/mm3 (4.30-5.90); White Blood Cell Count 17.54 K/mm3 (4.00-11.30)
[2023-09-16 07:22] VITALS: BP 150/78
[2023-09-16] MEDS ORDERED: Polyethylene Glycol 3350 17 gm PO ONE (09:05)
[2023-09-16 14:43] VITALS: BP 109/57
[2023-09-16] MEDS ORDERED: Ondansetron HCl 2 MG / ML 2ML Vial IV SCH (16:00)
[2023-09-16] MEDS ORDERED: TraMADol HCl 50 MG Tab PO PRN (17:30)
[2023-09-16] MEDS ORDERED: OxyCODONE HCL 5 MG TAB PO PRN (17:40)
[2023-09-16] MEDS ORDERED: Piperacillin/Tazobactam Sod 4.5 GM in NS 100 ML IV SCH (18:00)
--- NOTE | 2023-09-16 18:14 | NUR ---
SHIFT SUMMARY PT AOX4, SBA TO THE BR. WEAK ON HIS FEET. APPETITE LOW. PAIN NOT MANAGED BY THE EMAR, PROVIDER AWARE. NEW ORDERS IN PLACE. CT OF ABD DONE THIS SHIFT, PROVIDER AWARE OF RESULTS. GENERAL SURGERY CONSULT PLACED AND ANSWERING SERVICE CONTACTED. NEW BOWEL REGIMEN IMPLEMENTED THIS SHIFT, NO BM. CALL LIGHT WITHIN REACH, BED LOCKED AND IN THE LOWEST POSITION. WILL REPORT TO ONCOMING NURSE.
[2023-09-16] MEDS ORDERED: Polyethylene Glycol 3350 17 gm PO SCH (21:00)
[2023-09-16 21:15] VITALS: BP 130/68
[2023-09-17] VITALS (17 sets, daily range): BP systolic 115–156; BP diastolic 55–94
--- NOTE | 2023-09-17 03:22 | NUR ---
SHIFT SUMMARY Patient alert & oriented x4. Continues to report ABD pain & nausea. Toradol given once for pain, and scheduled Zofran given for N/V. CBG WNL, no SSI Humalog needed. 70/30 Insulin 30u administred at HS. IV Zoysn ABX administred Q6H. NPO at midnight, pending surgical consult. Dayshift left message with answering services, no updates this shift on consult. Patient took docusate sodium at HS, but declined to take scheduled Miralax. Will continue plan of care, awaiting surgery consult.
[2023-09-17] MEDS ORDERED: Metoclopramide HCl 5MG / ML 2ML Vial IV PRN (05:25)
[2023-09-17 05:56] LABS: Albumin, Blood 2.2 g/dL (3.4-5.0); Albumin/Globulin Ratio 0.5 (0.8-1.8); Bilirubin, Total 8.3 mg/dL (0.1-1.0); Bun/Creatinine Ratio 19.9 (12.0-20.0); Calcium, Blood 9.3 mg/dL (8.5-10.1); Creatinine, Blood 0.86 mg/dL (0.60-1.20); Globulin, Blood 4.5 g/dL (2.2-4.0); Potassium, Blood 4.4 mmol/L (3.5-5.5); Total Protein, Blood 6.7 g/dL (6.4-8.2)
[2023-09-17 05:57] LABS: BASOPHILS ABSOLUTE AUTO 0.02 K/mm3 (0.00-0.23); BASOPHILS PERCENT AUTO 0 % (0-2); EOSINOPHILS ABSOLUTE AUTO 0.06 K/mm3 (0.00-0.68); EOSINOPHILS PERCENT AUTO 0 % (0-6); Hematocrit 36.8 % (37.0-53.0); Hemoglobin 11.8 g/dL (13.5-17.5); IMMATURE GRAN ABSOLUTE AUTO 0.26 K/mm3 (0.00-0.10); IMMATURE GRAN PERCENT AUTO 2 % (0-1); LYMPHOCYTES ABSOLUTE AUTO 0.34 K/mm3 (0.84-5.20); LYMPHOCYTES PERCENT AUTO 2 % (21-46); MONOCYTES ABSOLUTE AUTO 1.22 K/mm3 (0.16-1.47); MONOCYTES PERCENT AUTO 8 % (4-13); Mean Corpuscular Volume 84 fL (80-100); Mean Platelet Volume 11.4 fL (9.1-12.4); NEUTROPHILS ABSOLUTE AUTO 13.15 K/mm3 (1.96-9.15); NEUTROPHILS PERCENT AUTO 87 % (41-73); Platelet Count 258 K/mm3 (150-400); RDW Coefficient Variation 15.7 % (11.7-14.2); RDW Standard Deviation 48.2 fL (35.1-46.3); Red Blood Cell Count 4.37 M/mm3 (4.30-5.90); White Blood Cell Count 15.05 K/mm3 (4.00-11.30)
[2023-09-17 06:09] LABS: Mean Corpuscular HGB Conc 32.1 g/dL (31.5-36.5)
[2023-09-17] MEDS ORDERED: Insulin NPH 100 Unit / ML 10ML Vial SC SCH (09:05)
[2023-09-17] MEDS ORDERED: Lactated Ringer's 1,000 ML IV SCH (10:50)
[2023-09-17] MEDS ORDERED: propofoL 20 ML IV ONE (11:02)
[2023-09-17] MEDS ORDERED: Rocuronium Bromide 10 MG/ML 5ML Injection IV ONE ×3 (11:02→14:02)
[2023-09-17] MEDS ORDERED: FentaNYL Citrate 50 MCG/ML 2 ML Injection IV ONE (11:03)
[2023-09-17] MEDS ORDERED: Lidocaine HCl 2% Jelly 120MG/6ML SYR (20MG PER ML) TOP ONE (11:04)
[2023-09-17] MEDS ORDERED: Labetalol HCL 5 MG/ML 4ML Injection (Single Dose) IV ONE (11:09)
[2023-09-17] MEDS ORDERED: Lidocaine HCl 1% 5 ML SYR INJ ONE (11:10)
[2023-09-17] MEDS ORDERED: Midazolam HCl 1MG / ML 2ML Vial IV ONE (11:10)
[2023-09-17] MEDS ORDERED: FentaNYL Citrate 50 MCG/ML 2 ML Injection IV PRN ×4 (11:15→20:40)
[2023-09-17] MEDS ORDERED: Ondansetron HCl 2 MG / ML 2ML Vial IV PRN (11:15)
[2023-09-17] MEDS ORDERED: Bupivacaine 0.5% HCl 5 MG/ML 30MLVIAL EPI ONE (11:58)
--- NOTE | 2023-09-17 12:15 | NUR ---
PT BEEN TO SDS BY RAMEZ WITH O2 IN PLACE BY OTHER RN. Patient confirms NPO status and agrees with scheduled surgery. History, Chart, Medications and Allergies reviewed before start of procedure.Lungs clear T/O to Auscultation. Patient confirms NPO status and agrees with scheduled surgery. Pre-Op teaching done. Pt verbalizes understanding.
--- NOTE | 2023-09-17 12:26 | NUR ---
GLASSES TO PACU.
[2023-09-17] MEDS ORDERED: Phenylephrine HCl 100 MCG/ML-NS 10MLSYR (1MG/10ML) IV ONE (12:35)
[2023-09-17] MEDS ORDERED: Ondansetron HCl 2 MG / ML 2ML Vial IV ONE (12:43)
[2023-09-17] MEDS ORDERED: Metoclopramide HCl 5MG / ML 2ML Vial IV ONE (12:44)
[2023-09-17] MEDS ORDERED: ePHEDrine Sulfate 50 MG/ML 1ML Injection IM ONE (12:46)
[2023-09-17] MEDS ORDERED: Bupivacaine 0.75% Inj 30 ML Vial INJ ONE (12:48)
[2023-09-17] MEDS ORDERED: Phenylephrine HCl 10mg/ml 1 ml Vial IV ONE (13:11)
[2023-09-17] MEDS ORDERED: Sugammadex Sodium 200 MG/2ML SDV (100 MG/ML) IV ONE ×2 (14:42→15:14)
[2023-09-17] MEDS ORDERED: SuccINYLCHOLINE Chloride 100 MG/5 ML 5MLSYR IV ONE (15:13)
[2023-09-17] MEDS ORDERED: HYDROcodone 5-APAP 325 TAB PO PRN (15:20)
--- NOTE | 2023-09-17 17:52 | NUR ---
SHIFT SUMMARY PT AXO, PLEASANT AND COOPERATIVE WITH CARE. PT LEFT ROOM FOR PROCEDURE AT 1110 VIA WHEELCHAIR. PT RETURNED TO ROOM AT 1622,PT TRANSFERRED AND VS MEASURED. PT PLACED ON PULSE OXIMETRY. 91% ON 3L VIA OXYMIZER AT THIS TIME. PT MEDICATED FOR PAIN PER EMAR. BED IN LOW POSITION, CALL LIGHT WITHIN REACH. JOLANTA DRAIN PATENT AND DRAINING SEROSANGUINOUS FLUID. LAP SITES ARE PATENT AND JUANITA. POOR APPETITE AT THIS TIME. PT MEDICATED FOR PAIN AND NAUSEA PER EMAR.
--- NOTE | 2023-09-17 20:35 | NUR ---
HOSPITALIST CONTACTED HOSPITALIST ZAIDA AMAYA CONTACTED FOR PATIENT C/O PAIN 02/09. PATIENT HAS Q4H PRN PAIN MEDS THAT ARE NOT DUE TO BE GIVEN. REQUESTING FOR BREAKTHROUGH PAIN COVERAGE. ZAIDA ORDERED FENTANYL 25-50MCG Q4H PRN.
[2023-09-17] MEDS ORDERED: Insulin Isoph 70 / Reg 30 100 Unit/ML 10ML Vial SC SCH (21:00)
[2023-09-17] MEDS ORDERED: Heparin Sodium,Porcine 5,000 UNIT/0.5 ML SDV SC SCH (21:00)
[2023-09-18 00:19] VITALS: BP 112/72
--- NOTE | 2023-09-18 04:19 | NUR ---
SHIFT SUMMARY. PATIENT IS ALERT AND ORIENTED AND COOPERATIVE WITH CARE. PATIENT ADMITTED FOR ELEVATED LIVER TRANSAMINASE LEVEL. PATIENT POST OP LAP NINO ON 09/17/23. PATIENT HAS A JOLANTA DRAIN TO RIGHT ABDOMEN. PATIENT C/O PAIN; MEDICATED PER EMAR-PATIENT REPORS BREAK THROUGH PAIN; NEW ORDER FOR PRN PAIN MEDS; SEE EMAR. PATIENT UP ONCE. PATIENT IS ON 4 L'S VIA OXIMIZER SATTING >90%. BED IS LOCKED IN THE LOWEST POSITION WITH CALL LIGHT IN REACH. CARE IS ONGOING.
[2023-09-18 04:36] VITALS: BP 127/69
[2023-09-18 06:01] LABS: Albumin/Globulin Ratio 0.5 (0.8-1.8); Bilirubin, Total 7.7 mg/dL (0.1-1.0); Bun/Creatinine Ratio 18.1 (12.0-20.0); Calcium, Blood 8.6 mg/dL (8.5-10.1); Creatinine, Blood 0.94 mg/dL (0.60-1.20); Globulin, Blood 4.3 g/dL (2.2-4.0); Potassium, Blood 4.7 mmol/L (3.5-5.5); Total Protein, Blood 6.3 g/dL (6.4-8.2)
[2023-09-18 06:17] LABS: BASOPHILS ABSOLUTE AUTO 0.03 K/mm3 (0.00-0.23); BASOPHILS PERCENT AUTO 0 % (0-2); EOSINOPHILS ABSOLUTE AUTO 0.09 K/mm3 (0.00-0.68); EOSINOPHILS PERCENT AUTO 1 % (0-6); Hematocrit 35.6 % (37.0-53.0); Hemoglobin 10.9 g/dL (13.5-17.5); IMMATURE GRAN ABSOLUTE AUTO 0.19 K/mm3 (0.00-0.10); IMMATURE GRAN PERCENT AUTO 1 % (0-1); LYMPHOCYTES ABSOLUTE AUTO 0.51 K/mm3 (0.84-5.20); LYMPHOCYTES PERCENT AUTO 3 % (21-46); MONOCYTES ABSOLUTE AUTO 1.24 K/mm3 (0.16-1.47); MONOCYTES PERCENT AUTO 8 % (4-13); Mean Corpuscular HGB 26.4 pg (26.0-34.0); Mean Corpuscular HGB Conc 30.6 g/dL (31.5-36.5); Mean Corpuscular Volume 86 fL (80-100); NEUTROPHILS ABSOLUTE AUTO 12.84 K/mm3 (1.96-9.15); NEUTROPHILS PERCENT AUTO 86 % (41-73); Platelet Count 282 K/mm3 (150-400); RDW Coefficient Variation 16.1 % (11.7-14.2); RDW Standard Deviation 50.4 fL (35.1-46.3); Red Blood Cell Count 4.13 M/mm3 (4.30-5.90)
[2023-09-18 07:44] VITALS: BP 129/69
--- NOTE | 2023-09-18 12:54 | NUR ---
09/18/23 1254 Mahi Villalpando VERIFICATIONS: EDIT CHART.
[2023-09-18 15:51] VITALS: BP 103/58
--- NOTE | 2023-09-18 17:59 | NUR ---
SHIFT SUMMARY PT AOX4, SBA TO THE BR. BM TODAY. MEDICATED FOR PAIN PER THE EMAR. JOLANTA DRAIN PATENT AND DRAINING. NO C/O NAUSEA THIS SHIFT. PT UP TO THE CHAIR OFF AND ON. PT CALLS AND MAKES HIS NEEDS KNOWN. CALL LIGHT WITH REACH, BED LOCKED AND IN THE LOWEST POSITION. WILL REPORT TO ONCOMING NURSE.
[2023-09-18 19:21] VITALS: BP 92/60
--- NOTE | 2023-09-19 02:20 | NUR ---
REPORT RECEIVED VERIFIED A/ O UP IN CHAIR IN AND OUT OF SLEEP AROUSABLE. JOLANTA DRAINING IS MINIMAL. PAIN TO ABD AND GENERAL UNCOMFORTABLENESS. PT ON 4 L NC,. ASSISTED PT TO BATHROOM IS VERY SLOW GOING AND WEAK, POSSIBLY NEEDS FWW TO GET AROUND TEMPORARLY. BUTTOCKS IS RED FROM SITTING CAUSING A LITTLE DISCOMFORT. BARRIER CREAM APPLIED TO THE AREA. PT ASSISTED BACK TO CHAIR WHERE PT SEEMS TO BE MORE COMFORTABLE.
[2023-09-19 02:48] VITALS: BP 105/66
[2023-09-19 05:34] LABS: Albumin, Blood 1.8 g/dL (3.4-5.0); Albumin/Globulin Ratio 0.4 (0.8-1.8); Bun/Creatinine Ratio 20.2 (12.0-20.0); Calcium, Blood 8.6 mg/dL (8.5-10.1); Creatinine, Blood 1.04 mg/dL (0.60-1.20); Globulin, Blood 4.3 g/dL (2.2-4.0); Potassium, Blood 4.6 mmol/L (3.5-5.5); Total Protein, Blood 6.1 g/dL (6.4-8.2)
[2023-09-19 05:52] LABS: BASOPHILS ABSOLUTE AUTO 0.04 K/mm3 (0.00-0.23); BASOPHILS PERCENT AUTO 0 % (0-2); EOSINOPHILS ABSOLUTE AUTO 0.19 K/mm3 (0.00-0.68); EOSINOPHILS PERCENT AUTO 2 % (0-6); Hematocrit 34.6 % (37.0-53.0); Hemoglobin 10.9 g/dL (13.5-17.5); IMMATURE GRAN ABSOLUTE AUTO 0.23 K/mm3 (0.00-0.10); IMMATURE GRAN PERCENT AUTO 2 % (0-1); LYMPHOCYTES ABSOLUTE AUTO 0.79 K/mm3 (0.84-5.20); LYMPHOCYTES PERCENT AUTO 6 % (21-46); MONOCYTES ABSOLUTE AUTO 1.06 K/mm3 (0.16-1.47); MONOCYTES PERCENT AUTO 8 % (4-13); Mean Corpuscular HGB 27.5 pg (26.0-34.0); Mean Corpuscular HGB Conc 31.5 g/dL (31.5-36.5); Mean Corpuscular Volume 87 fL (80-100); Mean Platelet Volume 11.2 fL (9.1-12.4); NEUTROPHILS ABSOLUTE AUTO 10.53 K/mm3 (1.96-9.15); NEUTROPHILS PERCENT AUTO 82 % (41-73); Platelet Count 294 K/mm3 (150-400); RDW Standard Deviation 50.3 fL (35.1-46.3); Red Blood Cell Count 3.96 M/mm3 (4.30-5.90); White Blood Cell Count 12.84 K/mm3 (4.00-11.30)
[2023-09-19 07:28] VITALS: BP 114/72
--- NOTE | 2023-09-19 16:28 | NUR ---
PT IS A/OX4, PLEASANT AND COOPERATIVE, JAUNDICE. THE PT IS UP WITH MINIMAL ASSIST USEING THE FWW, THE PT IS SOB WITH ACTIVITY. PT IS ON 3L/MIN O2 VIA NC HIS BASELINE . THE PT WAS MEDICATED FOR PAIN X1 SO FAR TODAY. PTS DIET ADVANCED PER HIS REQUEST. THE PT HAS BEEN UP IN THE CHAIR FOR MOST OF THE DAY. THE PT ATTEMPTED TO LAY DOWN IN HIS BED THIS AFTERNOON BUT BECAME VERY SOB WHEN LOWERED DOWN AND GOT RIGHT BACK UP TO THE CHAIR. THE PT WORKED WITH THE PHYSICAL THERAPIST TODAY. CALL LIGHT IN REACH
[2023-09-19 16:34] VITALS: BP 149/79
[2023-09-19 18:58] VITALS: BP 126/69
[2023-09-20 05:07] VITALS: BP 127/75
[2023-09-20 05:31] LABS: Albumin, Blood 1.9 g/dL (3.4-5.0); Albumin/Globulin Ratio 0.4 (0.8-1.8); Bun/Creatinine Ratio 21.7 (12.0-20.0); Creatinine, Blood 0.92 mg/dL (0.60-1.20); Globulin, Blood 4.7 g/dL (2.2-4.0); Potassium, Blood 3.7 mmol/L (3.5-5.5); Total Protein, Blood 6.6 g/dL (6.4-8.2)
[2023-09-20 05:32] LABS: BASOPHILS ABSOLUTE AUTO 0.06 K/mm3 (0.00-0.23); BASOPHILS PERCENT AUTO 1 % (0-2); EOSINOPHILS ABSOLUTE AUTO 0.22 K/mm3 (0.00-0.68); EOSINOPHILS PERCENT AUTO 2 % (0-6); Hematocrit 36.6 % (37.0-53.0); Hemoglobin 11.2 g/dL (13.5-17.5); IMMATURE GRAN ABSOLUTE AUTO 0.44 K/mm3 (0.00-0.10); IMMATURE GRAN PERCENT AUTO 3 % (0-1); LYMPHOCYTES ABSOLUTE AUTO 0.96 K/mm3 (0.84-5.20); LYMPHOCYTES PERCENT AUTO 7 % (21-46); MONOCYTES ABSOLUTE AUTO 1.21 K/mm3 (0.16-1.47); MONOCYTES PERCENT AUTO 9 % (4-13); Mean Corpuscular HGB 26.4 pg (26.0-34.0); Mean Corpuscular Volume 86 fL (80-100); Mean Platelet Volume 10.2 fL (9.1-12.4); NEUTROPHILS ABSOLUTE AUTO 10.24 K/mm3 (1.96-9.15); NEUTROPHILS PERCENT AUTO 78 % (41-73); Platelet Count 332 K/mm3 (150-400); RDW Standard Deviation 50.7 fL (35.1-46.3); Red Blood Cell Count 4.25 M/mm3 (4.30-5.90); White Blood Cell Count 13.13 K/mm3 (4.00-11.30)
[2023-09-20 05:34] LABS: Mean Corpuscular HGB Conc 30.6 g/dL (31.5-36.5)
--- NOTE | 2023-09-20 05:35 | NUR ---
SHIFT SUMMARY NOC PT A/O X 4. PLEASANT AND COOPERATIVE WITH CARE. VSS. NO ACUTE CHANGES TO REPORT. PT IS POST OP CHOLYECTOMY DAY 3. INCISIONS SITES STILL CAUSING DISCOMFORT AND PAIN BEING MANAGED PER EMAR. HS CBG 187 AND SCHEDULED 30 UNITS OF HUMULIN 70/[address] PL[address] IN RUQ DRAINING SEROSANGENOUS DRAINING, DRESSING C/D/I. PT STILL HAS JAUNDICED APPEARANCE DUE TO ELEVATED BILIRUBIN LEVELS. PT REFUSED BOWEL CARE RX. PT SLEPT IN RECLINER REPORTING THAT ABD PAIN WAS DECREASED WHEN SITTING UP. STILL ON O2 3L/NC WHICH IS BASELINE WITH SPO2 MONITORED BY CONTINOUS BIOX. PT CURRENTLY RESTING WITH BED IN LOWEST POSITION, AND CALL LIGHT WITHIN REACH.
[2023-09-20 07:07] VITALS: BP 119/73
--- NOTE | 2023-09-20 10:08 | NUR ---
DR GRAFF GAVE VERBAL ORDER TO GIVE 70/30 INSULIN 15 UNITS ONE TIME THIS AM INSTEAD OF THE ORDERED 30 UNITS. RECHECK ON BLOOD GLUCOSE PRIOR TO ADMIN WAS 133. CALL LIGHT IN REACH, CARES ONGOING
--- NOTE | 2023-09-20 11:55 | NUR ---
DR GAVIRIA IN TO REMOVE JOLANTA DRAIN. COVERED WITH GAUZE AND TEGADERM. PATIENT TOLERATED WELL.
[2023-09-20 15:09] VITALS: BP 138/71
--- NOTE | 2023-09-20 18:32 | NUR ---
SHIFT SUMMARY PATIENT AMBULATING TO BATHROOM SEVERAL TIMES THIS SHIFT, ONE ASSIST WITH WALKER. BLANCHABLE REDNESS TO COCCYX, BARRIER CREAM APPLIED, C/O SORENESS, ENCOURAGED WEIGHT SHIFTING WHILE IN CHAIR, DIDN'T TOLERATING LAYING IN BED THIS SHIFT. RECEIVING ZOSYN, TOLERATING WELL. JOLANTA PULLED BY DOC EARLIER THIS SHIFT, DRESSING CLEAN, DRY INTACT. ABLE TO MAKE NEEDS KNOWN. CALL LIGHT IN REACH, CARES ONGOING.
[2023-09-20 19:59] VITALS: BP 138/79
[2023-09-21 04:21] VITALS: BP 161/87
[2023-09-21 05:03] LABS: Albumin/Globulin Ratio 0.4 (0.8-1.8); Bilirubin, Total 2.1 mg/dL (0.1-1.0); Bun/Creatinine Ratio 22.2 (12.0-20.0); Calcium, Blood 9.3 mg/dL (8.5-10.1); Creatinine, Blood 0.81 mg/dL (0.60-1.20); Globulin, Blood 4.8 g/dL (2.2-4.0); Potassium, Blood 3.8 mmol/L (3.5-5.5); Total Protein, Blood 6.8 g/dL (6.4-8.2)
[2023-09-21 05:22] LABS: Hematocrit 37.5 % (37.0-53.0); Hemoglobin 11.4 g/dL (13.5-17.5); Mean Corpuscular HGB 26.6 pg (26.0-34.0); Mean Corpuscular HGB Conc 30.4 g/dL (31.5-36.5); Mean Corpuscular Volume 88 fL (80-100); Mean Platelet Volume 10.1 fL (9.1-12.4); Platelet Count 357 K/mm3 (150-400); RDW Coefficient Variation 16.2 % (11.7-14.2); RDW Standard Deviation 51.8 fL (35.1-46.3); Red Blood Cell Count 4.28 M/mm3 (4.30-5.90); White Blood Cell Count 11.93 K/mm3 (4.00-11.30)
--- NOTE | 2023-09-21 05:29 | NUR ---
SHIFT SUMMARY NOC PT A/O X 4. PLEASANT AND COOPERATIVE WITH CARE. VSS. NO ACUTE CHANGES TO REPORT. PT IS POST OP CHOLYECTOMY DAY 4. INCISIONS SITES STILL CAUSING DISCOMFORT AND PAIN BEING MANAGED PER EMAR. HS CBG 217 AND SCHEDULED 30 UNITS OF HUMULIN 70/30 GIVEN. JOLANTA DRAIN REMOVED YESTERDAY AND TRANSPARANT TEGADERM IN PLACE DRESSING C/D/I. PT STILL HAS JAUNDICED APPEARANCE DUE TO ELEVATED BILIRUBIN LEVELS. PT REFUSED BOWEL CARE RX. PT SLEPT IN RECLINER REPORTING THAT ABD PAIN WAS DECREASED WHEN SITTING UP. ON O2 4L/NC WHICH IS 1L ABOVE BASELINE WITH SPO2 MONITORED BY CONTINOUS BIOX. PT CURRENTLY RESTING WITH BED IN LOWEST POSITION, AND CALL LIGHT WITHIN REACH.
[2023-09-21 06:13] LABS: BAND PERCENT MAN 3 % (0-8); BASOPHILS PERCENT MAN 0 % (0-2); EOSINOPHILS ABSOLUTE MAN 0.35 K/mm3 (0.00-0.68); EOSINOPHILS PERCENT MAN 3 % (0-6); LYMPHOCYTES ABSOLUTE MAN 1.19 K/mm3 (0.84-5.20); LYMPHOCYTES PERCENT MAN 10 % (21-46); METAMYELOCYTE ABSOLUTE MAN 0.11 K/mm3 (0.00-0.00); METAMYELOCYTE PERCENT MAN 1 % (0-0); MONOCYTES ABSOLUTE MAN 1.07 K/mm3 (0.16-1.47); MONOCYTES PERCENT MAN 9 % (4-13); MYELOCYTE ABSOLUTE MAN 0.11 K/mm3 (0.00-0.00); MYELOCYTE PERCENT MAN 1 % (0-0); NEUTROPHILS ABSOLUTE MAN 9.06 K/mm3 (1.96-9.15); SEG NEUTROPHILS PERCENT MAN 73 % (41-73); TOTAL CELLS COUNTED 100
[2023-09-21 07:17] VITALS: BP 154/85
[2023-09-21] MEDS ORDERED: AmLODIPine Besylate 5 MG Tab PO ONE (14:00)
[2023-09-21 14:25] VITALS: BP 152/81
--- NOTE | 2023-09-21 16:30 | NUR ---
SHIFT SUMMARY PATIENT UP TO CHAIR MOST OF SHIFT, UNABLE TO TOLERATE LAYING DOWN. ENCOURAGED REPOSITIONING IN CHAIR. A/O X 3. SKIN LOOKS LESS JAUNDICE COMPARED TO 09/19. BLANCHABLE REDNESS TO COCCYX, BARRIER CREAM APPLIED. TROCH SITES DRY AND INTACT, JOLANTA REMOVAL SITE DRY AND INTACT. ON 3LITERS NC. ABLE TO MAKE NEEDS KNOWN, CALL LIGHT IN REACH, CARES ONGOING.
[2023-09-21 19:59] VITALS: BP 151/78
[2023-09-22 04:30] VITALS: BP 163/84
--- NOTE | 2023-09-22 05:20 | NUR ---
SHIFT SUMMARY NOC PT A/O X 4. PLEASANT AND COOPERATIVE WITH CARE. VSS. NO ACUTE CHANGES TO REPORT. PT IS POST OP CHOLYECTOMY DAY 4. INCISIONS SITES STILL CAUSING DISCOMFORT AND PAIN BEING MANAGED PER EMAR. HS CBG 268 AND SCHEDULED 30 UNITS OF HUMULIN 70/30 GIVEN WELL 1 UNIT SHORT ACTING.TRANSPARANT TEGADERM IN PLACE C/D/I FROM JOLANTA DRAIN REMOVAL ON 09/20/23. PT STILL HAS JAUNDICED APPEARANCE HAS DECREASED DUE TO ELEVATED BILIRUBIN LEVELS. PT REFUSED BOWEL CARE RX. PT SLEPT IN RECLINER REPORTING THAT ABD PAIN WAS DECREASED WHEN SITTING UP. ON O2 3L/NC WITH SPO2 MONITORED BY CONTINOUS BIOX. PT CURRENTLY RESTING WITH BED IN LOWEST POSITION, AND CALL LIGHT WITHIN REACH.
[2023-09-22 05:23] VITALS: BP 128/71
[2023-09-22 07:41] VITALS: BP 123/71
[2023-09-22 08:42] LABS: Hemoglobin 11.8 g/dL (13.5-17.5); Mean Corpuscular HGB 26.7 pg (26.0-34.0); Mean Corpuscular HGB Conc 30.3 g/dL (31.5-36.5); Mean Corpuscular Volume 88 fL (80-100); Mean Platelet Volume 10.1 fL (9.1-12.4); Platelet Count 365 K/mm3 (150-400); RDW Coefficient Variation 15.9 % (11.7-14.2); RDW Standard Deviation 51.5 fL (35.1-46.3); Red Blood Cell Count 4.42 M/mm3 (4.30-5.90); White Blood Cell Count 11.08 K/mm3 (4.00-11.30)
[2023-09-22] MEDS ORDERED: AmLODIPine Besylate 5 MG Tab PO SCH (09:00)
[2023-09-22 09:12] LABS: BAND PERCENT MAN 2 % (0-8); BASOPHILS PERCENT MAN 0 % (0-2); EOSINOPHILS ABSOLUTE MAN 0.33 K/mm3 (0.00-0.68); EOSINOPHILS PERCENT MAN 3 % (0-6); LYMPHOCYTES ABSOLUTE MAN 0.66 K/mm3 (0.84-5.20); LYMPHOCYTES PERCENT MAN 6 % (21-46); METAMYELOCYTE ABSOLUTE MAN 0.33 K/mm3 (0.00-0.00); METAMYELOCYTE PERCENT MAN 3 % (0-0); MONOCYTES ABSOLUTE MAN 0.77 K/mm3 (0.16-1.47); MONOCYTES PERCENT MAN 7 % (4-13); NEUTROPHILS ABSOLUTE MAN 8.97 K/mm3 (1.96-9.15); SEG NEUTROPHILS PERCENT MAN 79 % (41-73); TOTAL CELLS COUNTED 100
[2023-09-22 09:24] LABS: Albumin, Blood 2.2 g/dL (3.4-5.0); Albumin/Globulin Ratio 0.5 (0.8-1.8); Bilirubin, Total 1.9 mg/dL (0.1-1.0); Calcium, Blood 9.1 mg/dL (8.5-10.1); Creatinine, Blood 0.77 mg/dL (0.60-1.20); Globulin, Blood 4.8 g/dL (2.2-4.0)
[2023-09-22 15:37] VITALS: BP 136/74
--- NOTE | 2023-09-22 18:05 | NUR ---
CLEARLY MAKES NEEDS KNOWN, NO ACUTE CHANGES, PATIENT MORE AND IN MORE PAIN TODAY, WORKED WITH PT/OT, MEDICATED FOR PAIN, 3L O2 VIA NC SATS 98%, ALERT AND ORIENTED TO ALL, CALL LIGHT WITH IN REACH, WILL RELAY TO PM RN
[2023-09-22 20:31] VITALS: BP 146/75
[2023-09-22 23:35] VITALS: BP 161/80
--- NOTE | 2023-09-23 04:30 | NUR ---
SHIFT SUMMARY ADMITTED FOR ELEVATED LIVER TRANSAMINASE LEVEL. FULL CODE. MONITORING LABS. CHOLECYSTECTOMY PERFORMED ON 09/17/23. PAIN RX GIVEN FOR PAIN THIS SHIFT. PT/OT ARE SCHEDULED. ADA DIET, ACHS CBG'S. HE IS A&O X4. 3 LPM O2 VIA NC IS BASELINE
[2023-09-23 04:46] VITALS: BP 180/92
[2023-09-23 06:07] LABS: Albumin, Blood 2.1 g/dL (3.4-5.0); Albumin/Globulin Ratio 0.4 (0.8-1.8); Bilirubin, Total 1.5 mg/dL (0.1-1.0); Bun/Creatinine Ratio 18.5 (12.0-20.0); Calcium, Blood 9.3 mg/dL (8.5-10.1); Creatinine, Blood 0.86 mg/dL (0.60-1.20); Globulin, Blood 4.7 g/dL (2.2-4.0); Potassium, Blood 4.6 mmol/L (3.5-5.5); Total Protein, Blood 6.8 g/dL (6.4-8.2)
[2023-09-23 06:18] VITALS: BP 131/71
[2023-09-23 07:40] VITALS: BP 145/70
[2023-09-23 12:04] LABS: Influenza A, PCR NEGATIVE (NEGATIVE); Influenza B, PCR NEGATIVE (NEGATIVE); Resp Syncytial Virus, PCR NEGATIVE (NEGATIVE); SARS-Cov-2 (COVID-19) PCR, MMC NEGATIVE (NEGATIVE)
[2023-09-23 15:37] VITALS: BP 137/71
--- NOTE | 2023-09-23 17:53 | NUR ---
NO ACUTE CHANGES, MORE ALERT TODAY, LESS PAIN IN THE RUQ, WORKED WITH PT/OT, NEGATIVE FOR COVID FOR POSSIBLE REHAB/SNF PLACEMENT. MEDICATED WITH NORCO PRN, 3L O2 VIA NC, OINTMENT TO FISSURE ON COCCYX FOLD, CALL LIGHT WITH IN REACH, PATIENT NOT IMPULSIVE WILL RELAY TO PM RN
[2023-09-23 19:53] VITALS: BP 116/54
--- NOTE | 2023-09-24 03:31 | NUR ---
PATIENT REPORTED TO THUY COREY THAT HE FELT LIKE HIS BLOOD SUGAR WAS LOW; LEORA CHECKED PATIENTS CBG, CBG 63. PATIENT GIVEN JUICE AND A TURKEY SANDWICH.
[2023-09-24 04:17] VITALS: BP 104/54
--- NOTE | 2023-09-24 04:35 | NUR ---
SHIFT SUMMARY. PATIENT IS AOX4. PATIENT C/O PAIN;PAIN ASSESSED AND MEDICATED PER EMAR. PATIENT ON 3 L'S VIA NASAL CANNULA-3 L'S IS PATIENTS BASELINE. PATIENT ADMITTED FOR ELEVATED LIVER TRANSAMINASE LEVEL. PATIENT HAD CHOLECYSTECTOMY DONE THIS VISIT. PATIENT USING FWW AND 1 PERSON SBA TO THE BATHROOM. PATIENT IS ABLE TO MAKE HIS NEEDS KNOWN AND CALLS APPROPRIATELY. PATIENT HAD EPISODE OF HYPOGLYCEMIA; CORRECTED WITH JUICE AND SANDWICH-SEE CBG'S. BED IS LOCKED IN THE LOWEST POSITION WTIH CALL LIGHT IN REACH. NO S/S OF DISTRESS. CARE IS ONGOING.
[2023-09-24 06:30] LABS: BASOPHILS ABSOLUTE AUTO 0.08 K/mm3 (0.00-0.23); BASOPHILS PERCENT AUTO 1 % (0-2); EOSINOPHILS ABSOLUTE AUTO 0.24 K/mm3 (0.00-0.68); EOSINOPHILS PERCENT AUTO 2 % (0-6); Hematocrit 35.8 % (37.0-53.0); IMMATURE GRAN ABSOLUTE AUTO 0.87 K/mm3 (0.00-0.10); IMMATURE GRAN PERCENT AUTO 8 % (0-1); LYMPHOCYTES ABSOLUTE AUTO 1.07 K/mm3 (0.84-5.20); LYMPHOCYTES PERCENT AUTO 9 % (21-46); MONOCYTES ABSOLUTE AUTO 1.06 K/mm3 (0.16-1.47); MONOCYTES PERCENT AUTO 9 % (4-13); Mean Corpuscular HGB 26.7 pg (26.0-34.0); Mean Corpuscular HGB Conc 30.7 g/dL (31.5-36.5); Mean Corpuscular Volume 87 fL (80-100); NEUTROPHILS ABSOLUTE AUTO 8.34 K/mm3 (1.96-9.15); NEUTROPHILS PERCENT AUTO 71 % (41-73); Platelet Count 316 K/mm3 (150-400); RDW Coefficient Variation 15.9 % (11.7-14.2); RDW Standard Deviation 50.7 fL (35.1-46.3); Red Blood Cell Count 4.12 M/mm3 (4.30-5.90); White Blood Cell Count 11.66 K/mm3 (4.00-11.30)
[2023-09-24 06:37] LABS: Albumin, Blood 2.1 g/dL (3.4-5.0); Anion Gap 8 mmol/L (3-11); Blood Urea Nitrogen 14 mg/dL (8-24); Bun/Creatinine Ratio 15.8 (12.0-20.0); CO2, Blood 29 mmol/L (21-32); Calcium, Blood 9.5 mg/dL (8.5-10.1); Chloride, Blood 105 mmol/L (98-108); Creatinine, Blood 0.89 mg/dL (0.60-1.20); Glomerular Filtration Rate 92 (60-); Glucose, Blood 179 mg/dL (70-99); Magnesium, Blood 2.1 mg/dL (1.6-2.4); Phosphorus, Blood 3.3 mg/dL (2.5-4.9); Potassium, Blood 4.2 mmol/L (3.5-5.5); Sodium, Blood 138 mmol/L (136-145)
[2023-09-24 07:03] LABS: BASOPHILS PERCENT MAN 0 % (0-2); EOSINOPHILS ABSOLUTE MAN 0.23 K/mm3 (0.00-0.68); EOSINOPHILS PERCENT MAN 2 % (0-6); LYMPHOCYTES ABSOLUTE MAN 0.69 K/mm3 (0.84-5.20); LYMPHOCYTES PERCENT MAN 6 % (21-46); MONOCYTES ABSOLUTE MAN 0.93 K/mm3 (0.16-1.47); MONOCYTES PERCENT MAN 8 % (4-13); NEUTROPHILS ABSOLUTE MAN 9.79 K/mm3 (1.96-9.15); SEG NEUTROPHILS PERCENT MAN 84 % (41-73); TOTAL CELLS COUNTED 100
[2023-09-24 07:42] VITALS: BP 172/81
[2023-09-24] MEDS ORDERED: Insulin Isoph 70 / Reg 30 100 Unit/ML 10ML Vial SC SCH (09:40)
[2023-09-24 16:25] VITALS: BP 132/88
--- NOTE | 2023-09-24 17:41 | NUR ---
SUMMARY- PT A/O X3, AMBULATES TO BATHROOM SBA, SLOW, ADQ STRENGTH. USES CALL LIGHT, KNOWS LIMITS. PT HAS OXYGEN AT 3L (BASELINE), CONT PULSE OX. DIM IN BASES. SATS 93-96%. PHYSICAL THERAPY WORKED WITH PT AND ENC ACTIVITY, PT LACKS MOTIVATION. STATES HE WOULD LIKE TO GO HOME BUT P.T. DOES NOT THINK HE CAN DO EVERYTHING FOR HIMSELF AT HOME. AWAITING AUTH FOR SNF. PT TOLERATING FOOD AND FLUIDS, VOIDING. CURRENT WITH BM'S. WILL REPORT TO TRIP RN.
--- NOTE | 2023-09-24 17:50 | NUR ---
SUMMARY- PT A/O X4, SBA WITH WALKER RELATED TO IVF AND TELE. USES CALL LIGHT. HAS HAD HEMATURIA VOIDED CANO RED WITH SMALL CLOTS. PT LAST VOIDED AROUND 1300 AND STATES SHE HAS THE URGE TO VOID BUT HAS NOT BEEN ABLE- AFTER PT ATTEMPTED VOID 1800, SHE PASSED A HALF DOLLER SIZE CLOT, ANT SM BM. BLADDER SCAN DIRECTLY AFTER WAS 330ML. WILL NOTIFY MD. PT TOLERATING FOOD AND FLUIDS. HAS NAHCO3 RUNNING AT 75/HR, DR MEDLEY IS FOLLOWING. PT HAD 1 UNIT PBC'S THIS AM. WILL CHECK CBC/RP IN AM. WILL REPORT TO NOC RN
[2023-09-24 20:32] VITALS: BP 116/63
[2023-09-25 03:19] VITALS: BP 141/78
[2023-09-25 05:35] LABS: Albumin, Blood 2.2 g/dL (3.4-5.0); Albumin/Globulin Ratio 0.5 (0.8-1.8); Bilirubin, Total 1.2 mg/dL (0.1-1.0); Bun/Creatinine Ratio 14.4 (12.0-20.0); Calcium, Blood 9.2 mg/dL (8.5-10.1); Creatinine, Blood 1.04 mg/dL (0.60-1.20); Globulin, Blood 4.1 g/dL (2.2-4.0); Potassium, Blood 4.5 mmol/L (3.5-5.5); Total Protein, Blood 6.3 g/dL (6.4-8.2)
[2023-09-25 06:01] LABS: Hematocrit 35.1 % (37.0-53.0); Hemoglobin 10.5 g/dL (13.5-17.5); Mean Corpuscular HGB 26.6 pg (26.0-34.0); Mean Corpuscular HGB Conc 29.9 g/dL (31.5-36.5); Mean Corpuscular Volume 89 fL (80-100); Mean Platelet Volume 10.1 fL (9.1-12.4); Platelet Count 289 K/mm3 (150-400); RDW Coefficient Variation 15.8 % (11.7-14.2); RDW Standard Deviation 50.8 fL (35.1-46.3); Red Blood Cell Count 3.94 M/mm3 (4.30-5.90); White Blood Cell Count 10.24 K/mm3 (4.00-11.30)
[2023-09-25 06:29] LABS: BAND PERCENT MAN 1 % (0-8); BASOPHILS PERCENT MAN 0 % (0-2); EOSINOPHILS PERCENT MAN 4 % (0-6); LYMPHOCYTES ABSOLUTE MAN 1.22 K/mm3 (0.84-5.20); LYMPHOCYTES PERCENT MAN 12 % (21-46); MONOCYTES ABSOLUTE MAN 0.81 K/mm3 (0.16-1.47); MONOCYTES PERCENT MAN 8 % (4-13); MYELOCYTE PERCENT MAN 1 % (0-0); NEUTROPHILS ABSOLUTE MAN 7.68 K/mm3 (1.96-9.15); SEG NEUTROPHILS PERCENT MAN 74 % (41-73); TOTAL CELLS COUNTED 100
--- NOTE | 2023-09-25 07:43 | NUR ---
MIXING MACHINE ATTENDANT SUMMARY PT A&O X4, PLEASANT. PT TALKATIVE BUT [place]. PT UP INDEPENDENTLY IN THE ROOM, STABLE ON HIS FEET. PT REPORTING THAT HE DOES NOT WANT TO GO TO A SNF AND WANTS TO GO HOME WITH HOME HEALTH. WILL NOTIFY ONCOMING NURSE TO DISCUSS WITH BUTTON STATION WORKER/INSTRUMENTATION MANAGER. PT REPORTING HIS KIDS AND BAPTIST FRIENDS CAN ALSO ASSIST HIM AND HE IS WILLING TO GET MORE MOVEMENT THAN HE HAS BEEN. PT INCISION SITES SHOW NO S/S OF INFECTION, HEALING WELL. PT DENIES PAIN. NO ACUTE CHNAGES THIS SHIFT. 09/25/23 ROMÁN EISENBERG RN
[2023-09-25 07:48] VITALS: BP 147/81
[2023-09-25 12:16] LABS: Influenza A, PCR NEGATIVE (NEGATIVE); Influenza B, PCR NEGATIVE (NEGATIVE); Resp Syncytial Virus, PCR NEGATIVE (NEGATIVE); SARS-Cov-2 (COVID-19) PCR, MMC NEGATIVE (NEGATIVE)
[2023-09-25] MEDS ORDERED: MIRALAX17 GM PO (15:23)
[2023-09-25] MEDS ORDERED: VISBIOME 112.51 EACH PO (15:23)
--- NOTE | 2023-09-25 17:02 | NUR ---
DISCHARGE NOTE: ASSISTED PATIENT WITH GETTING DRESSED AND COLLECTING HIS BELONGINGS. MEDICAL TRANSPORT ARRIVED VIA WHEELCHAIR AND OXYGEN. PAPERWORK GIVEN TO MEDICAL TRASPORTER. CALLED AND GAVE REPORT TO [facility]. NO SIGNS OR SYMPTOMS OF DISTRESS WITH DISCHARGE.
== END 2023-09-25 16:50 | DRG 418 ==
LOC: ER 14:57 → MEDS 14:58 → ENPENDDIS 09-25 13:20 → MEDS 09-25 16:50
PROVIDERS: Emergency Medicine; Family Medicine; Internal Medicine; Physician Assistant; Surgery; ADMIT Internal Medicine
PROC: BF121ZZ Fluoroscopy of Gallbladder using Low Osmolar Contrast (ICD-10-PCS; 2023-09-17)
PROC: 0FT44ZZ Resection of Gallbladder, Percutaneous Endoscopic Approach (ICD-10-PCS; principal; 2023-09-17 11:30)
DX: K81.0 Acute cholecystitis (principal); B17.9 Acute viral hepatitis, unspecified; I13.0 Hypertensive heart and chronic kidney disease with heart failure and stage 1 through stage 4 chronic kidney disease, or unspecified chronic kidney disease; I50.32 Chronic diastolic (congestive) heart failure; J96.11 Chronic respiratory failure with hypoxia; J98.11 Atelectasis; R07.9 Chest pain, unspecified; R82.2 Biliuria; E03.9 Hypothyroidism, unspecified; F41.8 Other specified anxiety disorders; N18.30 Chronic kidney disease, stage 3 unspecified; E11.22 Type 2 diabetes mellitus with diabetic chronic kidney disease; E66.9 Obesity, unspecified; N40.0 Benign prostatic hyperplasia without lower urinary tract symptoms; K21.9 Gastro-esophageal reflux disease without esophagitis; K59.00 Constipation, unspecified; E78.5 Hyperlipidemia, unspecified; H40.9 Unspecified glaucoma; E11.39 Type 2 diabetes mellitus with other diabetic ophthalmic complication; E11.69 Type 2 diabetes mellitus with other specified complication; J06.9 Acute upper respiratory infection, unspecified; J47.9 Bronchiectasis, uncomplicated; Z98.890 Other specified postprocedural states; Z88.8 Allergy status to other drugs, medicaments and biological substances; Z87.442 Personal history of urinary calculi; Z87.19 Personal history of other diseases of the digestive system; Z79.899 Other long term (current) drug therapy; Z79.84 Long term (current) use of oral hypoglycemic drugs; Z79.4 Long term (current) use of insulin; Z79.890 Hormone replacement therapy; Z60.2 Problems related to living alone; Z99.81 Dependence on supplemental oxygen; Z68.35 Body mass index [BMI] 35.0-35.9, adult
CPT/HCPCS: 0202U; 0241U; 36415; 71046; 71260; 74177; 74300; 76705; 78452; 80048; 80053; 80069; 80074; 80076; 81001; 82248; 82803; 82947; 83036; 83605; 83690; 83735; 83880; 84145; 84484; 85025; 85027; 85610; 87086; 88304; 93005; 93010; 93017; 94640; 94664; 94760; 94762; 96365; 96366; 96372; 96375; 97110; 97116; 97162; 97165; 97530; 97535; 99284-25; A9270; A9500; C1729; G0378; G0480; J0330; J0360; J0612; J0696; J0706; J1644; J1650; J1815; J1885; J2250; J2371; J2405; J2543; J2704; J2765; J3010; J7060; J7120; Q9967

== ENCOUNTER → 2023-12-25 | Outpatient (CLI) | payer OTHER ==
[~2023-12-25] MED LIST changes: +MIRALAX17 GM PO; +VISBIOME 112.51 EACH PO
[2023-12-25 16:55] LABS: BASOPHILS ABSOLUTE AUTO 0.03 K/mm3 (0.00-0.23); BASOPHILS PERCENT AUTO 0 % (0-2); EOSINOPHILS ABSOLUTE AUTO 0.07 K/mm3 (0.00-0.68); EOSINOPHILS PERCENT AUTO 1 % (0-6); Hematocrit 49.7 % (37.0-53.0); Hemoglobin 15.7 g/dL (13.5-17.5); IMMATURE GRAN ABSOLUTE AUTO 0.02 K/mm3 (0.00-0.10); IMMATURE GRAN PERCENT AUTO 0 % (0-1); LYMPHOCYTES ABSOLUTE AUTO 0.56 K/mm3 (0.84-5.20); LYMPHOCYTES PERCENT AUTO 7 % (21-46); MONOCYTES ABSOLUTE AUTO 0.92 K/mm3 (0.16-1.47); MONOCYTES PERCENT AUTO 11 % (4-13); Mean Corpuscular HGB 27.1 pg (26.0-34.0); Mean Corpuscular HGB Conc 31.6 g/dL (31.5-36.5); Mean Corpuscular Volume 86 fL (80-100); Mean Platelet Volume 9.9 fL (9.1-12.4); NEUTROPHILS ABSOLUTE AUTO 6.55 K/mm3 (1.96-9.15); NEUTROPHILS PERCENT AUTO 80 % (41-73); Platelet Count 174 K/mm3 (150-400); RDW Coefficient Variation 14.7 % (11.7-14.2); RDW Standard Deviation 46.4 fL (35.1-46.3); Red Blood Cell Count 5.79 M/mm3 (4.30-5.90); White Blood Cell Count 8.15 K/mm3 (4.00-11.30)
[2023-12-25 17:03] LABS: Albumin, Blood 3.5 g/dL (3.4-5.0); Albumin/Globulin Ratio 0.8 (0.8-1.8); Bilirubin, Total 0.9 mg/dL (0.1-1.0); Bun/Creatinine Ratio 11.9 (12.0-20.0); Calcium, Blood 9.1 mg/dL (8.5-10.1); Creatinine, Blood 1.09 mg/dL (0.60-1.20); Globulin, Blood 4.6 g/dL (2.2-4.0); Potassium, Blood 3.3 mmol/L (3.5-5.5); Total Protein, Blood 8.1 g/dL (6.4-8.2)
== END ==
LOC: LAB 16:48 → LAB SHORT 16:48
PROVIDERS: Physician Assistant
DX: E11.22 Type 2 diabetes mellitus with diabetic chronic kidney disease (principal); E11.39 Type 2 diabetes mellitus with other diabetic ophthalmic complication; E11.69 Type 2 diabetes mellitus with other specified complication; Z79.4 Long term (current) use of insulin
CPT/HCPCS: 80053; 83036; 85025